=== PATIENT | male | born 1930 | race Caucasian/White ===

== ENCOUNTER 2018-05-02 13:13 | Inpatient (IN) | payer OTHER, MEDICARE ==
[~2018-05-02] VITALS: Ht 182.9 cm; Wt 114.8 kg
--- NOTE | ~2018-05-02 | HC ---
[facility] [address] CONSULTATION Name: DAVID RAMÍREZ Room #: 213-P [facility] IN ..#: [id number] Admission: 05/02/18 Attend Phys: Monico Montelongo MD Discharge: 05/09/18 Date of : 32 Report #: [id number] THIS REPORT FOR: //name// CC: Monico Montelongo Physician staff BOONE ROMO DATE OF SERVICE: 05/08/2018 HISTORY OF PRESENT ILLNESS: The patient is an 87-year-old white male with history of atrial fibrillation, hypertension, nonhealing right leg wound, who was admitted through the Emergency Department with a fall. A mechanical fall in the parking lot and hit his head. The patient denies specific loss of consciousness, but notes a decline in his mentation. He had a significant scalp laceration, which was glued. His daughter has noted some decline with his mental status, although he has had some problems with medications, muscle relaxers, and complicating things. He has had some confusion regarding times and days. His course has been complicated by acute renal insufficiency and he also had urinary retention with Barrett catheter placement greater than 1 liter residual. He was noted to have leukocytosis, possible fluid collection, abscess of the foot and underwent I and D by Podiatry. Wound care is involved. He has Infectious Disease involved as well and has noted MRSE of the right foot. He is on Zyvox. We are seeing him in rehabilitation medicine consultation. PAST MEDICAL HISTORY: Includes atrial fibrillation with rapid ventricular response, hypertension, previously nonhealing right foot wound, peripheral arterial disease, and bilateral lower extremity with ulceration. MEDICATIONS: Please see the full medication listing. This includes vitamins, herbals, and supplements. ALLERGIES: PENICILLIN. SOCIAL HISTORY: Lives in a senior apartment. Did not use any gait aids, premorbidly. There are no steps, involved daughter lives about 30 minutes away. The senior apartment is apparently starting some additional care services through a local home healthcare agency that are in the process of being set up. The patient premorbidly, he had been independent driving. REVIEW OF SYSTEMS: He did not offer any current complaints of chest pain, shortness of breath, and abdominal discomfort. He has some left leg discomfort and was noted to have a left hip contusion. CT of the left hip was negative during this hospitalization. PHYSICAL EXAMINATION: GENERAL: He is a pleasant 87-year-old white male, in no obvious distress. [facility] [address] [place] [address] CONSULTATION Name: MONICO,DAVID Room #: 213-P [facility] IN [facility].#: [id number] Admission: 05/02/18 Attend Phys: Monico Montelongo MD Discharge: 05/09/18 Date of : 32 Report #: [id number] NEUROLOGIC: He is alert, can follow basic 1 step commands. There is a latency to his responses. He was confused as to when he had surgery, thinking was last night when it actually in the afternoon. He has some prolonged cognitive processing. We will defer to his daughter. Facies appeared symmetric. We will follow basic 1 step commands. He has functional range of motion of both upper extremities with strength grade 4-/5. DTRs are trace to 1. He does have the scalp laceration, which was glued. His lower extremities, he has the right foot wound, which is dressed. There is no calf swelling. He can move the proximal lower extremity, probably a grade 4-/5, left lower extremity is probably a grade 3+4-/5. DTRs are 1. Functionally, he is max assist with basic bed to chair. He has fair minus sitting balance. He has started some work on some basic sliding board transfers. ASSESSMENT: An 87-year-old white male with the following problem list: 1. Rule out closed head injury. He did have the fall with the scalp laceration. 2. Likely superimposed metabolic encephalopathy. Some confusion, disorientation is noted. 3. Nonhealing right foot infection, now status post-surgical debridement 05/07/2018. 4. Methicillin-resistant Staphylococcus epidermidis, right foot infection. 5. Acute renal insufficiency. 6. Urinary retention with greater than 1 liter residual. Barrett catheter placement. 7. Atrial fibrillation. 8. Hypercoagulable. 9. Left lower extremity contusion. 10. Chronic systolic heart failure. 11. Cardiomyopathy. PLAN: The patient is nonweightbearing right lower extremity. Therapy evaluations are underway including occupational therapy. We are considering him for an acute in-hospital inpatient 5 North rehabilitation stay. Discussion with the daughter. We will have the certified rehabilitation counselor follow and we will follow along with you regarding his rehab therapy needs. <ELECTRONICALLY SIGNED> By: Darrin Schaffer MD 05/17/18 1220 1128 1337 Darrin Schaffer MD /BRENDA
--- NOTE | ~2018-05-02 | HC ---
[facility] [place] [address] CONSULTATION Name: DAVID RAMÍREZ Room #: 213-P [facility] IN ..#: [id number] Admission: 05/02/18 Attend Phys: Monico Montelongo MD Discharge: 05/09/18 Date of : 32 Report #: [id number] THIS REPORT FOR: //name// CC: Monico Montelongo Physician staff BOONE ROMO DATE OF SERVICE: 05/09/2018 HISTORY OF PRESENT ILLNESS: This heavy 87-year-old gentleman was injured about 1 week ago when he fell. 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 After the fall, he complained of rather generalized discomfort including the back, left hip, left knee, left leg and also the right lower leg and foot. He has been admitted to the hospital over the past week as he underwent foot surgery and also has multiple areas of discomfort, which have been unresponsive to conservative measures. He has had extensive radiographic imaging and no new fractures have been identified. At the time of my evaluation, he notes generalized discomfort, which seems to be most significant in the low back; however, he also has some pain at the left hip, thigh and knee with less discomfort in the left lower leg and moderate ongoing pain in the right lower leg and foot where he has had recent surgery. In discussing this with the patient and his family, he has difficulty determining where his primary complaint is at this point and what principally limits him from resuming ambulation. In general, his complaint is more severe in the low back and less severe at the left distal thigh. His previous history is notable for a previous left proximal femur fracture treated with a long TFN nail some years ago. He states he has been doing well after that procedure and has been ambulatory and functional on the left lower extremity without significant pain. He has had chronic low back discomfort, which has been manageable in a conservative fashion. OBJECTIVE: He is heavy and deconditioned and is poorly cooperative during my examination. The low back seems to have generalized discomfort, but without significant instability. He does self-limit in terms of range of motion noting some vague generalized low back pain, which seems most consistent with generalized degenerative osteoarthritis. The right lower extremity reveals satisfactory movement at the right hip and knee with only minor crepitus and minimal discomfort. The right foot is notable for a recent surgical wound with a dry and intact dressing on the foot consistent with a plantar ulcer and debridement. The left lower extremity is notable for some generalized discomfort about the left hip; however, the hip joint itself demonstrates good range of motion without crepitus nor any evidence of proximal femur fracture nor severe degenerative change. There is some generalized edema in both lower extremities, [address] [address] CONSULTATION Name: DAVID RAMÍREZ Room #: 213-P [facility] IN M.R.#: [id number] Admission: 05/02/18 Attend Phys: Monico Montelongo MD Discharge: 05/09/18 Date of : 32 Report #: [id number] but there is no localized swelling nor any bruising about the left hip or thigh. He does complain of some vague generalized mid and distal thigh discomfort both to palpation and movement. Findings seem consistent with soft tissue irritability and bruising or myositis. The femur seemed stable and in good position. The left knee demonstrates satisfactory alignment and range of motion with mild crepitus consistent with some degenerative change. The left lower leg, foot and ankle appear to be normal with the exception of some generalized edema. He does note some vague, radiating pain down the left leg, which is aggravated by movement and activity. This seems most consistent with some left-sided radiculopathy symptoms; however, I do not find clear neurologic deficit in the left lower extremity. He has had extensive imaging studies. Plain x-rays and CT scan of the left hip and femur reveal a well-healed old proximal femur fracture with a long TFN nail, which seems to be in good position. There is no evidence of new bony injury about the left hip, femur or knee. There is mild degenerative change of the left hip and the left knee, but this appears to be chronic. X-rays and MRI of the lumbar spine reveal moderate multilevel degenerative lumbar spondylosis with significant disk space narrowing at several levels. He has an old L4 compression fracture, which was treated with previous vertebroplasty and appears to be stable. There is no evidence of any new fractures in the low back. These degenerative changes do cause some level of canal narrowing and foraminal narrowing with mild stenosis, but there is no area of marked neurologic impingement. His MRI study of the right foot revealed evidence of a soft tissue ulcer at the mid foot, but without clear evidence of osteomyelitis. In summary, I see no evidence of any significant new structural injuries as a result of his recent fall. He does have significant preexisting problems, most notably the severe multilevel degenerative arthritis in the low back. I believe he probably sprained or strained the low back resulting in increased back pain as a result of the fall. In addition, I think he probably sprained or bruised the left thigh and has ongoing muscular irritability in that region. Fortunately, he has no evidence of a new fracture involving the left femur and no significant problems involving left hip nor the left knee. Consequently, I see nothing, which would require aggressive or surgical treatment. I understand he is uncomfortable and having difficulty participating with physical therapy. I think this is mostly due to his back pain and soft tissue discomfort in the left thigh. I see no reason we cannot advance his activities to whatever extent comfort and strength will allow and with physical therapy assistance. Certainly, he needs to use a walker for safety and balance and ambulation may be difficult as he is instructed to avoid any weightbearing on the right leg where he has had recent surgery. Given this limitation, he may not be able to ambulate at all as he feels too weak and uncomfortable to manage only on the left side. He may have to do transfers and be limited to wheelchair ambulation until the right foot heals sufficiently to allow weightbearing. I would not anticipate we will need to do anything else with regard to left lower extremity [address] [address] CONSULTATION Name: DAVID RAMÍREZ Room #: 213-P [facility] IN [facility].#: [id number] Admission: 05/02/18 Attend Phys: Monico Montelongo MD Discharge: 05/09/18 Date of : 32 Report #: [id number] based upon the current findings. We will follow along while he remains in the hospital and then, we are happy to see him back as an outpatient after discharge to follow up with regard to any other ongoing problems. <ELECTRONICALLY SIGNED> By: Darrin Guzman MD 05/10/18 0740 1043 0018 Darrin Guzman MD /nt
--- NOTE | ~2018-05-02 | EKG ---
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: CAMELIA : 1930 Requested By: Patel Wren Order Number: [id number] MD: Alexys Taylor Measurements Intervals [place]ax Rate: 153 P: GA: QRS: -1 QRSD: 86 T: 101 QT: 289 QTc: 462 Interpretive Statements Atrial fibrillation with rapid V-rate Low voltage, extremity leads Abnormal inferior Q waves Repolarization abnormality, prob rate related Baseline wander in lead(s) III No previous ECG available for comparison Electronically Signed On 05-02-2018 17:03:26 CDT by Alexys Taylor [email or web address] <ELECTRONICALLY SIGNED> By: Alexys Taylor MD 05/02/18 1703 1314 1314 Alexys Taylor MD /EPI
--- NOTE | ~2018-05-02 | HC ---
[facility] [place] [address] CONSULTATION Name: DAVID RAMÍREZ Room #: 213-P [facility] IN M.R.#: [id number] Admission: 05/02/18 Attend Phys: Monico Montelongo MD Discharge: Date of : 32 Report #: [id number] THIS REPORT FOR: //name// CC: Monico Montelongo Physician staff BOONE ROMO DATE OF SERVICE: 05/03/2018 CHIEF COMPLAINT: Ulceration on the plantar aspect of the right foot. HISTORY OF PRESENT ILLNESS: This is an 87-year-old white male patient who presented to the Emergency Department with a nonsyncopal event. He apparently fell and struck his head after falling in a parking lot. He did sustain a laceration to the scalp. He underwent primary repair in the Emergency Department. Additionally, he is noted to have a chronic ulceration on the plantar aspect of his right foot that has been present for 3 months. It has not been much painful. He has been seen by podiatry for this. There was noted to be possibly foreign body on x-ray per the Emergency Department report. I have been asked to see him with regard to wound care. He generally feels well at this point in time. Additionally, he has been noted to be in atrial fibrillation with rapid ventricular response and is being now seen by cardiology. The patient had a CT scan of the head, which was normal. PAST MEDICAL HISTORY: Positive history of atrial fibrillation, history of laceration to his head, ulcer of the right foot, left hip fracture, previous radical prostatectomy. SOCIAL HISTORY: The patient admits to occasional alcohol use. He is a previous smoker having quit after smoking for 20 years, 1 pack per day. No history of drug use. FAMILY HISTORY: Noncontributory. ALLERGIES: PENICILLINS. MEDICATIONS: Include metoprolol, Xarelto, Toprol, Synthroid, acetaminophen, Colace. REVIEW OF SYSTEMS: CONSTITUTIONAL: The patient denies fever, chills or weight loss. NEUROLOGICAL: The patient denies focal weakness, numbness or tingling. EYES: The patient denies visual changes, redness or drainage. ENT: The patient denies earache, nasal drainage or sore throat. CARDIOVASCULAR: The patient denies chest pain, palpitation or diaphoresis. PULMONARY: The patient denies cough or shortness of breath. [address] [address] CONSULTATION Name: MONICODAVID Room #: [address] [place] [address] IN [facility].#: [id number] Admission: 05/02/18 Attend Phys: Monico Montelongo MD Discharge: Date of : 32 Report #: [id number] GASTROINTESTINAL: The patient denies nausea, vomiting or abdominal pain. ORTHOPEDIC: The patient does note the ulceration on the plantar aspect of his right foot. It is slightly painful when weightbearing, but not painful when touched. Other systems in a 14-point review of systems are negative. PHYSICAL EXAMINATION: VITAL SIGNS: At this time include pulse rate 113, respiratory rate 18, blood pressure 122/65, temperature 97.7. GENERAL: This is a chronically ill-appearing male patient who appears to be in minimal distress. HEENT: Head demonstrates a laceration that is status post repair. The remainder of the head is atraumatic. Extraocular movements are intact. Nose and throat are clear. NECK: Supple. LUNGS: Clear. HEART: Irregular. ABDOMEN: Soft. Bowel sounds are present. EXTREMITIES: Demonstrate diminished yet palpable distal pulses. He has an ulceration on the plantar aspect of the right foot underlying the third MTP joint. He has a bit of a prominence of the plantar portions of the MTP joints. There is some tunneling and undermining of this ulceration, but does not appear to be infected and bone is not directly palpable. NEUROLOGIC: The patient is alert, oriented and appropriate. Moving all 4 extremities spontaneously. LABORATORY DATA: Include sodium 135, potassium 4.2, chloride 105, CO2 of 26, BUN 20, creatinine 1.2. Lactic acid is 1.3. CRP is elevated at 81. White blood cell count is 14.5, hemoglobin 10.8, platelet count 204,000. Sed rate is mildly elevated at 33. Hemoglobin A1c is 5.7. Wound cultures obtained, results pending. X-ray of the right foot demonstrates possible small foreign body, small ulcer on the ball of the foot with no definite bone destruction. CT of the head demonstrates atrophic changes, extracranial hematoma, no acute intracranial process. CLINICAL IMPRESSION: 1. Closed head injury with scalp laceration, status post primary repair by the Emergency Department. 2. Atrial fibrillation with rapid ventricular response. 3. Mild hyperglycemia, does not appear to be clinical criteria for diabetes mellitus. 4. Chronic ulceration, plantar aspect of the right foot. RECOMMENDATIONS: At this point in time, we will recommend MRI to evaluate for underlying osteomyelitis. If present, he may require an aggressive debridement including bony debridement of that area. We will recommend packing with silver [facility] [address] [place] [address] CONSULTATION Name: DAVID RAMÍREZ Room #: 819-P ADM IN [place]#: [id number] Admission: 05/02/18 Attend Phys: Monico Montelongo MD Discharge: Date of : 32 Report #: [id number] alginate rope for the present time. Empiric antibiotic therapy would be reasonable pending the cultures, although the wound itself does not appear to be overtly infected. All questions have been answered and the patient's daughter is at the bedside as well. I do appreciate being asked to see him in consultation. <ELECTRONICALLY SIGNED> By: Faraz Long MD 05/07/18 1401 1706 0303 Faraz Long MD /nt
--- NOTE | ~2018-05-02 | HC ---
[facility] [place] [address] CONSULTATION Name: DAVID RAMÍREZ Room #: 213-P [facility] IN M.R.#: [id number] Admission: 05/02/18 Attend Phys: Monico Montelongo MD Discharge: Date of : 32 Report #: [id number] THIS REPORT FOR: //name// CC: Monico Montelongo Physician staff BOONE ROMO REASON FOR CONSULTATION: Atrial fibrillation. HISTORY OF PRESENT ILLNESS: The patient is an 87-year-old gentleman who is a patient of Dr. Velasco. He has been followed for long-term atrial fibrillation, which has been treated with rate-controlling agents, as well as rivaroxaban. He has had a right foot sore for the past several weeks. 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 He was wearing a stiff boot and lost his balance and had a non-syncopal fall with associated scalp laceration. He has generalized aches and pains from the fall. No loss of consciousness. He was seen in the emergency department where his atrial fibrillation rates were fast. I have been asked to see him in this regard. He is largely asymptomatic from the standpoint of his atrial fibrillation. Namely, he denies chest pain or pressure. He is bothered by mild shortness of breath without orthopnea or paroxysmal nocturnal dyspnea. No history of near syncope or syncope. He denies fevers, chills or night sweats. ALLERGIES: He is allergic to PENICILLIN. MEDICATIONS: Include rivaroxaban 10 mg daily, metoprolol 25 mg daily, levothyroxine 100 mcg daily, and Colace. PAST MEDICAL HISTORY: His past history of medical records have been reviewed and includes history of radical prostatectomy, left hip fracture with surgery, and compression fracture of the spine. 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 . FAMILY HISTORY: No history of premature coronary disease. Both parents lived to their late 80s. REVIEW OF SYSTEMS: All systems negative except as that noted above. PHYSICAL EXAMINATION: GENERAL: A pleasant gentleman in no distress. VITAL SIGNS: Blood pressure is 152/79, heart rate of 119 and irregular, respirations unlabored at 18, he is afebrile, 6 feet tall, 252 pounds. HEENT: There are neither xanthelasma, subcutaneous xanthomata, oral mucosal or digital cyanosis or kyphoscoliosis present. [facility] [address] [place] [address] CONSULTATION Name: NGOC RAMÍREZYD Room #: 213-P [facility] IN [facility].#: [id number] Admission: 05/02/18 Attend Phys: Monico Montelongo MD Discharge: Date of : 32 Report #: [id number] CHEST: Clear to auscultation and percussion. CARDIAC: Irregularly irregular rhythm with normal S1, S2. No murmurs or rubs. ABDOMEN: Soft and nontender. EXTREMITIES: Without cyanosis, clubbing or edema. Radial pulses are 2+. NEUROLOGIC: He is alert with a nonfocal exam. LABORATORY DATA: Troponin 0, sodium 135, potassium 4.2, creatinine 1.2, glucose 123. White count 14.5, hemoglobin 10, hematocrit 32, platelet count 204. EKG: Atrial fibrillation with a rapid ventricular response. IMAGING DATA: Foot films demonstrated possible small foreign body and a small ulcer at the ball of the right foot. No bone destruction. Chest x-ray demonstrates normal heart size and vascularity at the upper limits of normal. IMPRESSION: 1. Permanent atrial fibrillation. 2. Right foot wound, possible foreign body. 3. Glucose intolerance. 4. Hypercoagulable. 5. Non-syncopal fall with injury. RECOMMENDATIONS: 1. Advance metoprolol dosing. 2. Obtain records from Dr. Mcnally's office; [facility]' Cardiology. 3. I agree with long-term anticoagulation. This has been held briefly due to scalp bleeding from his scalp laceration and possible need for foot debridement. These issues were discussed with the patient in detail. Thank you for asking me to participate in his care. <ELECTRONICALLY SIGNED> By: Raul Mccloud MD, FACC 05/07/18 1259 0731 0804 Raul Mccloud MD, FACC /nt
--- NOTE | ~2018-05-02 | HC ---
[facility] [place] [address] CONSULTATION Name: DAVID RAMÍREZ Room #: 213-P [facility] IN M.R.#: [id number] Admission: 05/02/18 Attend Phys: Monico Montelongo MD Discharge: Date of : 32 Report #: [id number] THIS REPORT FOR: //name// CC: Monico Montelongo Physician staff BOONE ROMO DATE OF SERVICE: 05/06/2018 REASON FOR CONSULTATION: Right foot infection. HISTORY OF PRESENT ILLNESS: An 87-year-old white man has developed a right foot infection, evaluated by the board certified music therapist and the foot infection became worse, coagulase negative isolated, he is started on vancomycin, renal function worsens, ID opinion is requested. PAST MEDICAL HISTORY: Atrial fibrillation, hypertension. Hypothyroidism. Chronic back pain. Recent trauma, left hip. Nonhealing right foot infection. SOCIAL HISTORY: See H and P. FAMILY HISTORY: See H and P. REVIEW OF SYSTEMS: Left hip pain. DRUG ALLERGIES: PENICILLIN. MEDICATIONS: The patient is on treatment with vancomycin 750 mg IV daily, diltiazem drip, levothyroxine, metoprolol, p.r.n. oxycodone, polyethylene glycol daily, docusate daily, metoprolol daily, pantoprazole daily, insulin release per sliding scale, p.r.n. glucose, glucagon. PHYSICAL EXAMINATION: GENERAL: Well-developed, not toxic looking man. VITAL SIGNS: Temperature 97.9, pulse 87, respirations 18, BP 158/68. Weight 263.3 pounds, height is 6 feet. HEENMT: Within range. NECK: Supple. LUNGS: Few basilar crackles. HEART: S1, S2. No gallop. Irregularly irregular rhythm. ABDOMEN: Soft, no masses or megaly. GENITALIA AND RECTAL: Deferred. EXTREMITIES: Under the head of the right third and fourth metacarpals, there are sinus tracts and point tenderness draining purulent material. NEUROLOGIC: Grossly within normal limits. [address] [address] CONSULTATION Name: MONICO,DAVID Room #: 213-[facility] IN [facility]#: [id number] Admission: 05/02/18 Attend Phys: Monico Montelongo MD Discharge: Date of : 32 Report #: [id number] LABORATORY DATA: On admission, renal function is normal. Renal function revealed a BUN of 23 and creatinine 1.5. This improves over the days, but today, the BUN jumps up to 42 and creatinine 2.4. Vancomycin trough elevated and dose decreased. C-reactive protein was 81. On 05/03/2018, WBC 11,400, hemoglobin 8.4 g/dL, platelets 219,000. ESR 33. On 05/03/2018, hemoglobin A1c 5.7%. Urinalysis revealed some bacteriuria. MICROBIOLOGY DATA: Blood cultures obtained remained negative so far. Foot wound culture revealed many coagulase negative Staphylococcus aureus sensitive to vancomycin, WINSTON of 2. RADIOLOGY EVALUATION: Chest x-ray, no significant abnormalities. X-ray of the foot revealed possible small foreign body, small ulcer around the metatarsal areas on the right foot. MRI of the foot revealed subcutaneous edema, cellulitis of the foot, the fluid collection, possible abscess around the third and fourth metatarsal heads. Deep ulcer and granulation tissue or inflammatory changes in the ball of the foot anterior to the second through fourth metatarsophalangeal joints, no osteomyelitis. X-ray of the femur revealed no significant abnormalities. CAT scan of the left lower extremities, no acute fracture or dislocation, post-surgical changes of intramedullary ykler fixation of left femur fracture. ASSESSMENT: 1. A right foot infection with coagulase-negative Staphylococcus with sensitive vancomycin WINSTON 2. 2. Worsening renal function, 3. Atrial fibrillation. 4. Trauma, left hip recent fall. 5. Anemia. SUGGESTIONS: Recommend discontinue vancomycin. Zyvox 600 mg IV every 12 hours. Repeat ESR, CRP. Proceed with incision and drainage. Dr. Collier, thank you for requesting my suggestions. <ELECTRONICALLY SIGNED> By: Adonay Taylor MD 05/07/18 1005 1055 1858 Adonay Taylor MD /nt
--- NOTE | ~2018-05-02 | EKG ---
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
[2018-05-02 13:14] VITALS: BP 132/80
[2018-05-02 13:42] LABS: ANION GAP 11 mmol/L (7-16); BUN 23 mg/dL (7-18); CALCIUM 9.9 mg/dL (8.5-10.1); CHLORIDE 102 mmol/L (98-107); CO2 24 mmol/L (21-32); CREATININE 1.5 mg/dL (0.7-1.3); GLUCOSE 161 mg/dL (74-106); POTASSIUM 4.7 mmol/L (3.5-5.1); SODIUM 137 mmol/L (136-145)
[2018-05-02 13:46] LABS: ABSOLUTE NEUTROPHILS 13.9 thou/uL (1.4-8.2); BASOPHILS 0.6 % (0.0-2.0); EOSINOPHILS 0.1 % (0.0-3.0); HEMATOCRIT 43.4 % (42.0-52.0); HEMOGLOBIN 14.5 gm/dL (14.0-18.0); MCHC 33.5 g/dL (28.0-37.0); MCV 92.3 fL (80.0-100.0); MONOCYTES 10.6 % (1.0-8.0); PLATELET COUNT 238 thou/uL (150-400); POLYS 80.7 % (36.0-66.0); RDW 13.9 % (10.5-14.5); WBC 17.2 thou/uL (4.0-11.0)
[2018-05-02 13:51] LABS: TROPONIN-I <0.06 ng/mL (<0.06)
[2018-05-02 13:52] LABS: APTT 36.3 Seconds (24.5-32.8); INR 1.5; PROTIME 15.3 Seconds (9.3-11.4)
[2018-05-02 15:36] LABS: URINE BILIRUBIN NEGATIVE (Negative); URINE BLOOD TRACE (Negative); URINE CLARITY CLEAR; URINE COLOR YELLOW; URINE GLUCOSE-RANDOM* NEGATIVE (Negative); URINE KETONES NEGATIVE (Negative); URINE LEUKOCYTES-REFLEX NEGATIVE (Negative); URINE NITRITE-REFLEX NEGATIVE (Negative); URINE PROTEIN (DIPSTICK) 1+ (Negative); URINE SPECIFIC GRAVITY 1.025 (1.005-1.035); URINE UROBILINOGEN 0.2 E.U./dl (0.2-1.0)
[2018-05-02] MEDS ORDERED: XARELTO10 MG PO (15:37)
[2018-05-02] MEDS ORDERED: TOPROL XL25 MG PO (15:38)
[2018-05-02] MEDS ORDERED: SYNTHROID100 MC1 PO (15:39)
[2018-05-02] MEDS ORDERED: ONE DAILY FOR1 EAC2 PO (15:40)
[2018-05-02] MEDS ORDERED: TYLENOL EXTRA500 MG PO (15:40)
[2018-05-02] MEDS ORDERED: COLACE100 MG PO (15:40)
[2018-05-02 15:44] LABS: SQUAMOUS 0-3 Few /LPF (0-3)
[2018-05-02 15:45] LABS: BACTERIA-REFLEX 1-9 Few /HPF (None Seen); CASTS None Seen /LPF (None Seen); CRYSTALS None Seen /LPF (None Seen); URINE RBC 0-2 Rare /HPF (0-2); URINE WBC-REFLEX None Seen /HPF (0-5)
[2018-05-02 17:52] VITALS: BP 126/64
[2018-05-02 18:25] VITALS: BP 142/71
[2018-05-02 19:12] VITALS: BP 148/63
[2018-05-03 00:10] VITALS: BP 143/72
[2018-05-03 04:09] LABS: GLYCOHEMOGLOBIN (HGB A1C) 5.7 % (4.8-5.6)
[2018-05-03 05:00] LABS: CALCIUM 8.8 mg/dL (8.5-10.1); CREATININE 1.2 mg/dL (0.7-1.3); MAGNESIUM 2.1 mg/dL (1.8-2.4); POTASSIUM 4.2 mmol/L (3.5-5.1)
[2018-05-03 05:09] VITALS: BP 152/79
[2018-05-03 05:34] LABS: HEMATOCRIT 32.1 % (42.0-52.0); MCHC 33.6 g/dL (28.0-37.0); MCV 92.2 fL (80.0-100.0); PLATELET COUNT 204 thou/uL (150-400); RBC 3.48 mil/uL (4.50-6.00); RDW 14.1 % (10.5-14.5); WBC 14.5 thou/uL (4.0-11.0)
[2018-05-03 05:35] LABS: HEMOGLOBIN 10.8 gm/dL (14.0-18.0)
[2018-05-03 07:42] LABS: ABSOLUTE NEUTROPHILS 10.7 thou/uL (1.4-8.2)
[2018-05-03 08:22] VITALS: BP 140/73
[2018-05-03 11:22] VITALS: BP 131/61
[2018-05-03 15:04] VITALS: BP 122/65
[2018-05-03 19:07] VITALS: BP 113/69
[2018-05-04] VITALS (7 sets, daily range): BP systolic 110–128; BP diastolic 60–71
[2018-05-04 07:58] LABS: HEMATOCRIT 29.9 % (42.0-52.0); HEMOGLOBIN 9.9 gm/dL (14.0-18.0); MCH 30.4 pg (26.0-34.0); PLATELET COUNT 193 thou/uL (150-400); RBC 3.25 mil/uL (4.50-6.00); RDW 14.5 % (10.5-14.5)
[2018-05-04 08:06] LABS: CALCIUM 8.1 mg/dL (8.5-10.1); CREATININE 1.2 mg/dL (0.7-1.3); POTASSIUM 4.4 mmol/L (3.5-5.1)
[2018-05-04 08:51] LABS: ABSOLUTE NEUTROPHILS 11.1 thou/uL (1.4-8.2); ATYPICAL LYMPHS 1 %
[2018-05-04 08:52] LABS: ANISOCYTOSIS SLIGHT
[2018-05-05 04:14] VITALS: BP 138/58
[2018-05-05 05:49] LABS: HEMATOCRIT 26.3 % (42.0-52.0); HEMOGLOBIN 8.7 gm/dL (14.0-18.0); MCH 30.5 pg (26.0-34.0); MCHC 33.1 g/dL (28.0-37.0); MCV 92.1 fL (80.0-100.0); RBC 2.85 mil/uL (4.50-6.00); RDW 14.1 % (10.5-14.5); WBC 12.3 thou/uL (4.0-11.0)
[2018-05-05 05:58] LABS: CALCIUM 8.4 mg/dL (8.5-10.1); CREATININE 1.3 mg/dL (0.7-1.3); POTASSIUM 4.7 mmol/L (3.5-5.1)
[2018-05-05 08:06] VITALS: BP 126/66
[2018-05-05 11:22] VITALS: BP 112/62
[2018-05-05 16:20] VITALS: BP 151/72
[2018-05-05 19:52] VITALS: BP 142/63
[2018-05-06 03:24] LABS: HEMATOCRIT 25.6 % (42.0-52.0); HEMOGLOBIN 8.4 gm/dL (14.0-18.0); MCH 30.3 pg (26.0-34.0); MCHC 32.8 g/dL (28.0-37.0); MCV 92.6 fL (80.0-100.0); RBC 2.77 mil/uL (4.50-6.00); RDW 14.2 % (10.5-14.5); WBC 11.4 thou/uL (4.0-11.0)
[2018-05-06 03:33] LABS: CALCIUM 8.4 mg/dL (8.5-10.1)
[2018-05-06 03:42] LABS: CREATININE 2.4 mg/dL (0.7-1.3)
[2018-05-06 04:11] VITALS: BP 134/59
[2018-05-06 07:42] VITALS: BP 158/68
[2018-05-06 11:30] VITALS: BP 135/70
[2018-05-06 16:00] VITALS: BP 130/62
[2018-05-06 20:05] VITALS: BP 135/54
[2018-05-07 04:03] LABS: CALCIUM 8.8 mg/dL (8.5-10.1); CREATININE 2.1 mg/dL (0.7-1.3); POTASSIUM 4.6 mmol/L (3.5-5.1)
[2018-05-07 04:43] VITALS: BP 144/52
[2018-05-07 04:44] LABS: HEMATOCRIT 26.8 % (42.0-52.0); MCH 31.3 pg (26.0-34.0); MCHC 33.7 g/dL (28.0-37.0); MCV 92.9 fL (80.0-100.0); RBC 2.89 mil/uL (4.50-6.00); RDW 14.3 % (10.5-14.5); WBC 12.9 thou/uL (4.0-11.0)
[2018-05-07 13:07] VITALS: BP 127/65
[2018-05-07 19:39] VITALS: BP 112/57
[2018-05-08 00:18] VITALS: BP 137/58
[2018-05-08 03:51] LABS: CALCIUM 8.1 mg/dL (8.5-10.1); CREATININE 1.6 mg/dL (0.7-1.3); POTASSIUM 4.4 mmol/L (3.5-5.1)
[2018-05-08 04:30] VITALS: BP 129/60
[2018-05-08 07:35] VITALS: BP 141/63
[2018-05-08 11:58] VITALS: BP 116/36
[2018-05-08 16:14] VITALS: BP 139/51
[2018-05-08 19:52] VITALS: BP 114/42
[2018-05-09 00:09] VITALS: BP 112/67
[2018-05-09 03:45] VITALS: BP 109/47
[2018-05-09 03:47] LABS: HEMATOCRIT 26.7 % (42.0-52.0); HEMOGLOBIN 8.9 gm/dL (14.0-18.0); MCH 30.9 pg (26.0-34.0); MCHC 33.4 g/dL (28.0-37.0); MCV 92.6 fL (80.0-100.0); RBC 2.88 mil/uL (4.50-6.00); RDW 14.3 % (10.5-14.5); WBC 12.4 thou/uL (4.0-11.0)
[2018-05-09 03:50] LABS: CALCIUM 8.7 mg/dL (8.5-10.1); CREATININE 1.6 mg/dL (0.7-1.3); MAGNESIUM 1.8 mg/dL (1.8-2.4); POTASSIUM 4.3 mmol/L (3.5-5.1)
[2018-05-09 07:41] VITALS: BP 123/68
[2018-05-09 12:10] VITALS: BP 102/52
[2018-05-09] MEDS ORDERED: LIDOPATCH1 EACH TRANSDERM (12:55)
[2018-05-09] MEDS ORDERED: CARDIZEM CD240 MG PO (12:55)
[2018-05-09] MEDS ORDERED: PROTONIX40 M1 PO (12:55)
[2018-05-09] MEDS ORDERED: MIRALAX17 GM PO (12:55)
[2018-05-09] MEDS ORDERED: LOPRESSOR50 PO (12:55)
[2018-05-09] MEDS ORDERED: PERCOCET 5-3251 EACH PO (12:55)
[2018-05-09] MEDS ORDERED: NOVOLOG100 UNIT/1 SUBQ (12:55)
[2018-05-09] MEDS ORDERED: FLOMAX0.4 MG PO (12:55)
[2018-05-09] MEDS ORDERED: LINEZOLID600 MG PO (12:55)
[2018-05-09] MEDS ORDERED: CYCLOBENZAPRINE5 MG PO (12:55)
== END 2018-05-09 15:55 | DRG 853 ==
LOC: ER 13:13 → 2N 15:37 → EROBS 15:37 → 2N 17:53
PROVIDERS: Hospitalist; Internal Medicine; Nurse Practitioner; Physician Assistant
PROC: 0HQ0XZZ Repair Scalp Skin, External Approach (ICD-10-PCS; 2018-05-02)
PROC: 0JBQ0ZZ Excision of Right Foot Subcutaneous Tissue and Fascia, Open Approach (ICD-10-PCS; principal; 2018-05-07)
DX: A41.9 Sepsis, unspecified organism (principal); N17.0 Acute kidney failure with tubular necrosis; D68.59 Other primary thrombophilia; I42.9 Cardiomyopathy, unspecified; I50.22 Chronic systolic (congestive) heart failure; L03.115 Cellulitis of right lower limb; L02.611 Cutaneous abscess of right foot; S90.851A Superficial foreign body, right foot, initial encounter; S01.01XA Laceration without foreign body of scalp, initial encounter; I48.2 Chronic atrial fibrillation; R65.20 Severe sepsis without septic shock; E74.39 Other disorders of intestinal carbohydrate absorption; S09.90XA Unspecified injury of head, initial encounter; L97.519 Non-pressure chronic ulcer of other part of right foot with unspecified severity; R73.9 Hyperglycemia, unspecified; E03.9 Hypothyroidism, unspecified; G89.29 Other chronic pain; M54.9 Dorsalgia, unspecified; D64.9 Anemia, unspecified; L08.9 Local infection of the skin and subcutaneous tissue, unspecified; B95.62 Methicillin resistant Staphylococcus aureus infection as the cause of diseases classified elsewhere; I73.9 Peripheral vascular disease, unspecified; I11.0 Hypertensive heart disease with heart failure; R33.9 Retention of urine, unspecified; S70.02XA Contusion of left hip, initial encounter; S89.91XA Unspecified injury of right lower leg, initial encounter; K59.00 Constipation, unspecified; S79.912A Unspecified injury of left hip, initial encounter; Z23 Encounter for immunization; Z62.813 Personal history of forced labor or sexual exploitation in childhood; Z88.0 Allergy status to penicillin; Z87.891 Personal history of nicotine dependence; Z85.46 Personal history of malignant neoplasm of prostate; W18.39XA Other fall on same level, initial encounter; Y93.89 Activity, other specified; Y92.89 Other specified places as the place of occurrence of the external cause; Y99.8 Other external cause status
CPT/HCPCS: 10081; 50010; 50101; 50386; 53078; 57091; 62110; 62850; 70005

== ENCOUNTER 2018-05-09 13:04 | Inpatient (IN) | payer OTHER, MEDICARE ==
[~2018-05-09] VITALS: Ht 182.9 cm; Wt 128.4 kg
--- NOTE | ~2018-05-09 | PATH ---
[facility] [address] [address] PATHOLOGY RPT PROCEDURE Name: ALEX MARC Room #: 515-P ADM IN M.R.#: [id number] Admission: 05/09/18 Date of : 32 Discharge: Report #: [id number] Path Case #: [id number] [facility] Accession Number: [id number] . 01 Material submitted: . BX OF GASTRIC R/O H PYLORI . 01 Clinician provided ICD-10: . 01 Clinical history: . Dysphagia, rule out H. pylori . 02 Diagnosis: Gastric mucosa, gastritis, endoscopic biopsy: - Mild chronic active gastritis. - Negative for intestinal metaplasia or atrophy. - Negative for Helicobacter pylori (properly controlled immunohistochemical stain performed). (IUV/db; 05/17/18) LBQ/05/17/2018 . 02 Electronically signed: . Martha Maloney MD, Pathologist NPI- [id number] . 01 Gross description: . The specimen is received in formalin, labeled "Alex Marc, BX of gastric", are two anne soft tissue 0.2 cm and 0.7 cm in greatest dimension, entirely submitted in A1. (SWS; 05/16/2018) SHS/SHS . 02 Pathologist provided ICD-10: K29.50 . 02 CPT . 143381, N68260 Specimen Comment: A courtesy copy of this report has been sent to Specimen Comment: [phone], . Specimen Comment: Report sent to / DR SCHWAB Specimen Comment: A duplicate report has been generated due to demographic updates. Performed at: [address], [place] [id number] MD Caden Barrientos MD Phone: [phone] [address] [address] PATHOLOGY RPT PROCEDURE Name: ALEX MARC Room #: 515-P [facility] IN M.R.#: [id number] Admission: 05/09/18 Date of : 32 Discharge: Report #: [id number] Path Case #: [id number] Performed at: [address] [id number] MD Martha Maloney MD Phone: [phone]
--- NOTE | ~2018-05-09 | H ---
[facility] [place] [address] HISTORY AND PHYSICAL Name: DAVID RAMÍREZ Room #: 515-P ADM IN M.R.#: [id number] Admission: 05/09/18 Attend Phys: Darrin Schaffer MD Discharge: Date of : 32 Report #: [id number] THIS REPORT FOR: //name// CC: Darrin Schaffer FAM unknown BOONE ROMO DATE OF SERVICE: 05/09/2018 HISTORY OF PRESENT ILLNESS: This is an 87-year-old gentleman who presented to the Emergency Department after a fall in the parking lot. He was diagnosed with a closed head injury. They used surgery glue in the Emergency Department on his occipital scalp area. Also, diagnosed with metabolic encephalopathy and a nonhealing right foot wound. He underwent I and D on 05/07/2018. Also noted to have some acute renal insufficiency along with urinary retention, which required a Barrett catheter placement. Due to the patient's decline in his functional mobility, he is now being admitted to acute inpatient rehabilitation for physical, occupational and speech therapies. Today, the patient reports generalized weakness and fatigue. He denies headache or dizziness. He denies numbness or tingling. He denies cough, shortness of air, chest pain, nausea or constipation. He reports a good appetite. He has pain in his foot. The catheter is being removed at present. PAST MEDICAL HISTORY: Left hip fracture, prostatectomy radical, atrial fibrillation, hypothyroidism, hypertension, constipation. HABITS: The patient is a former cigarette smoker. He smoked 1 pack per day for 20 years. He quit over 1 year ago. He uses alcohol on special occasions. Denies any illicit drug use. CODE STATUS: Full code. SOCIAL HISTORY: The patient lives in a long-term apartment. There are no steps to enter the building, all needs are on one level. He utilized no assistive device premorbidly. He does have a very involved daughter. ALLERGIES: PENICILLIN. CURRENT MEDICATIONS: Xarelto 15 mg daily, lidocaine patch daily, Zyvox 600 mg twice a day, Cardizem 240 mg daily, Flomax 0.4 mg daily, IV piggyback Cardizem, levothyroxine 100 mcg daily, Percocet one to two tablets q.4 hours p.r.n., MiraLax 17 grams daily, Colace 100 mg twice a day, metoprolol tartrate 50 mg twice a day, Protonix 40 mg daily, sliding scale insulin a.c. and at bedtime. REVIEW OF SYSTEMS: Remainder of his 12-point review of systems is negative except as listed in HPI. [address] [address] HISTORY AND PHYSICAL Name: DAVID RAMÍREZ Room #: 515-P [facility] IN M.R.#: [id number] Admission: 05/09/18 Attend Phys: Darrin Schaffer MD Discharge: Date of : 32 Report #: [id number] PHYSICAL EXAMINATION: VITAL SIGNS: 102/52, respirations 14, pulse of 82, temperature 97.6. He is 100% oxygen sat on room air. GENERAL: He is awake, alert, oriented to person, place and situation. He is a poor historian and requires redirection with the topic. HEAD: Normocephalic. He has a contusion and open area on the occipital region. There was some surgery glue over it and dry drainage. There was some fresh blood noted on his pillow case. EYES: EOMs are intact. No nystagmus. ENT: No sinus tenderness. CARDIAC: Irregular rate and rhythm. CHEST: Lungs are diminished and clear throughout. ABDOMEN: Bowel sounds are positive, soft, nontender. GENITOURINARY: He has a Barrett catheter with dark yellow urine output noted in the bag. SKIN: He has a right foot wound with dressing clean, dry and intact. EXTREMITIES: Functional range of motion upper and lower extremities. No noted tremors. He is max assist from bed to chair with slide board transfer. He has some trouble maintaining the no weightbearing on the right lower extremity. NEUROLOGIC: Facies appeared symmetrical. He can follow basic 1-step commands. No noted slurred speech. He has some latency in his verbal responses. ASSESSMENT: 1. Metabolic encephalopathy. 2. Rule out closed head injury. 3. Fall with scalp laceration, status post glue. 4. Right foot wound, status post surgical debridement on 05/07/2018. 5. Acute renal insufficiency. 6. Urinary retention. 7. Atrial fibrillation. 8. Cardiomyopathy with ejection fraction of 40%. 9. Chronic systolic heart failure. 10. Left hip pain, status post fall. 11. Cough. PLAN: The patient has been admitted to acute inpatient rehabilitation unit for physical, occupational, and speech therapies with his goal to return back to his home living situation. He will have hospital consultants continue to follow. The nurses reached out to Podiatry for possible heel weightbearing. If that does happen, we could get him evaluated for a right heel bearing only shoe. He [facility] [address] [place] [address] HISTORY AND PHYSICAL Name: DAVID RAMÍREZ Room #: 515-P ADM IN M.R.#: [id number] Admission: 05/09/18 Attend Phys: Darrin Schaffer MD Discharge: Date of : 32 Report #: [id number] will have lab work checked the next 3 days, close monitoring. Please see extensive orders. <ELECTRONICALLY SIGNED> By: DEVORAH Reza 05/21/18 1240 1441 1529 DEVORAH Reza /nt
--- NOTE | ~2018-05-09 | PLAN ---
[facility] [place] [address] REHAB UNIT PLAN OF CARE Name: DAVID RAMÍREZ Room #: 515-P ADM IN M.R.#: [id number] Admission: 05/09/18 Attend Phys: Darrin Schaffer MD Discharge: Date of : 32 Report #: [id number] THIS REPORT FOR: //name// CC: Darrin Schaffer FAM unknown BOONE ROMO DATE OF SERVICE: 05/10/2018 POST ADMISSION PHYSICIAN EVALUATION HISTORY: The patient was originally admitted to [facility] after a fall through the Emergency Department and was admitted on 05/02/2018. He had a significant scalp laceration. Did not have a specific loss of consciousness, but noted a decline in his mentation and family has noted this as well. His course was complicated by acute renal insufficiency. He also had urinary retention with Barrtet catheter placement for greater than 1 liter residual. He had leukocytosis, possible fluid collection, abscess of the foot and underwent I and D by Podiatry. He is noted to have methicillin-resistant staphylococcus aureus of the right foot. He is admitted now for acute in-hospital inpatient rehabilitation with the following problem list: 1. Metabolic encephalopathy. 2. Rule out closed head injury. 3. Fall with scalp laceration. 4. Right foot wound, status post surgical debridement 05/07/2018. 5. Acute renal insufficiency. 6. Urinary retention. 7. Atrial fibrillation. 8. Cardiomyopathy with ejection fraction of 40%. 9. Chronic systolic heart failure. PHYSICAL EXAMINATION: GENERAL: On examination, he is pleasant. HEENT: Appeared to be benign. VITAL SIGNS: Last recorded temperature is 97.5, pulse 91, respirations 15, and blood pressure 127/58. His right foot is dressed. CHEST: Sounded clear to auscultation. HEART: Regular rate and rhythm. ABDOMEN: Bowel sounds positive and nontender with functional range of motion of both upper extremities with strength grade 4- to 3+/5. DTRs are trace to 1. Lower extremities functional range of motion strength is grade 3+ to 4-/5. Transfers are sliding board, max assist for scooting, supine to sit, mod assist. He is limited to nonweightbearing right lower extremity. He does have rwxy-[id number]-[id number] cognitive deficits. ASSESSMENT: As noted above. PLAN: From a postadmission physician evaluation perspective, there are no relevant changes since the preadmission screening. Please see the above review [address] [address] REHAB UNIT PLAN OF CARE Name: ADVID RAMÍREZ Room #: 515-P [facility] IN [facility].#: [id number] Admission: 05/09/18 Attend Phys: Darrin Schaffer MD Discharge: Date of : 32 Report #: [id number] of prior and current medical and functional conditions and comorbidities. Please see the full history and physical dictation as per the nurse practitioner. As far as risk of complications, see the above noted medical comorbidities. We will be monitoring him regarding safety issues. The plan of care involves the interdisciplinary acute inpatient rehabilitation program with the goal of maximizing his functional independence, so he can hopefully return back to his prior living situation. Measurable functional goals would be for him to become modified independent at least at the wheelchair level initially. Prognosis is reasonably good with estimated length of stay probably at least 2 weeks and likely longer. Potential barriers would include the patient's multiple medical comorbidities and decreased functional status. The patient meets diagnostic criteria for an acute in-hospital inpatient rehabilitation stay. He meets the medical necessity criteria and he has multiple small business consultant physicians that are involved with Infectious Disease, Cardiology, Wound care, Podiatry, all involved and we will have neuropsychology assist with the cognitive issues. He does have the tolerance for therapies and has appropriate discharge goals back to the home setting. <ELECTRONICALLY SIGNED> By: Darrin Schaffer MD 05/23/18 1213 0849 10 Darrin Schaffer MD /nt
--- NOTE | ~2018-05-09 | HC ---
[facility] [place] [address] CONSULTATION Name: DAVID RAMÍREZ Room #: 515-P [facility] IN M.R.#: [id number] Admission: 05/09/18 Attend Phys: Darrin Schaffer MD Discharge: Date of : 32 Report #: [id number] THIS REPORT FOR: //name// CC: Darrin Schaffer FAM mariah ROMO DATE OF SERVICE: 05/12/2018 Neurobehavioral Status Examination Report ATTENDING PHYSICIAN: Darrin Schaffer MD JUNIOR WEB DESIGNER: Ronni Miles, PhD CLINICAL PRESENTATION: The patient is an 87-year-old male, admitted to the rehabilitation unit at [facility] for a comprehensive inpatient rehabilitation program to improve functional mobility, activities of daily living and self-care and mental status secondary to encephalopathy. The patient was initially brought into the emergency room after a fall in the parking lot, in which he struck the back of his head. At that time, he was identified as having a nonhealing right foot wound, metabolic encephalopathy, acute renal insufficiency, and urinary retention. His diagnostic impressions on admission to rehab were metabolic encephalopathy, rule out closed head injury, fall with scalp laceration, right foot wound, status post surgical debridement, acute renal insufficiency, urinary retention, atrial fibrillation, cardiomyopathy with ejection fraction of 40%, chronic left systolic heart failure, left hip pain, status post fall on the calf. A complete description of his medical condition and history and medications can be found in his medical record. Neuropsychological consultation was requested to provide assistance in the assessment of cognitive and emotional status in order to provide recommendations and services. Prior to this most recent medical event, he is reported to have been living independently in a chcf community. He has 2 children. The patient states that he was independent with all instrumental activities of daily living including driving. 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 He denies a prior history of treatment for alcohol/drug abuse or mood disorder. TECHNIQUES UTILIZED: Clinical interview, review of medical records, staff consultation and behavioral observation, Mini-Mental Status Exam 2 standard version, clock drawing, and verbal fluency assessment sections and brief abstract reasoning test. [facility] [address] [place] [address] CONSULTATION Name: DAVID RAMÍREZ Room #: 515-P [facility] IN .R.#: [id number] Admission: 05/09/18 Attend Phys: Darrin Schaffer MD Discharge: Date of : 32 Report #: [id number] EXAMINATION FINDINGS: The patient was alert and cooperative with the assessment. He accurately described events surrounding his admission. There is no evidence of aphasia. His thoughts are logical and goal oriented. There is no evidence of thought disorder. He does not report auditory or visual hallucinations or suicidal ideation. His mood appears mildly irritable. He indicates feeling frustrated with his need for continued hospitalization and treatment. Symptoms include difficulty with sleep, pain, anxiety, depression and variability in word finding. He is worried about his return to prior lifestyle. Performance on the MMSE 2 brief version is in the mild range of impairment with a raw score of 13 and T score of 36. He was 3/3 for initial registration, 4/5 for orientation to time, 5/[address] and 1/3 for immediate recall of 3 items after brief time delay and distraction. Performance on the MMSE 2 standard version is a raw score of 24/30, which is a T score of 36 and in the mild range of impairment. He was 2/5 for serial 7s, 2/2 for naming, 1/1 for repetition, 3/3 for auditory comprehension. He could read and follow a single command, write a sentence, and copy a simple geometric design. However, the patient was unable to set the hands of a clock at a designated time. Letter fluency was within normal limits with a raw score 26 and T score of 48. Category fluency assessment was within normal limits with a T score of 57. Brief abstract reasoning test was 8/8, which is within normal limits. The patient does show evidence of cognitive deficits. Difficulty with immediate recall, sustained concentration and variability and with word substitution. Deficits in executive functioning are suggested. They are also suggested by an impairment in clock drawing. DIAGNOSTIC IMPRESSION: 1. 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 2. Unspecified anxiety disorder. RECOMMENDATIONS: Further neuropsychological assessment may be of benefit to clarify the severity of cognitive functioning. The use of medications that are sedating may be contributing variability in cognitive function. Reducing as medically appropriate medication with sedating features, for example, oxycodone may be of benefit in improving overall cognition. The patient will likely need assistance with the management of his medication and nutrition upon his return home. A structured and consistent schedule will assist his overall adjustment. Followup neuropsych assessment in approximately 6-8 weeks will also be of benefit to clarify the severity of cognitive deficits. [address] [address] CONSULTATION Name: DAVID RAMÍREZ Room #: 515-P [facility] IN M.R.#: [id number] Admission: 05/09/18 Attend Phys: Darrin Schaffer MD Discharge: Date of : 32 Report #: [id number] Thank you very much for allowing me to provide the consultation on this patient. By: 1727 0628 Ronni Miles, PhD /nt
--- NOTE | ~2018-05-09 | PLAN ---
[facility] [place] [address] REHAB UNIT PLAN OF CARE Name: DAVID RAMÍREZ Room #: 515-P ADM IN M.R.#: [id number] Admission: 05/09/18 Attend Phys: Darrin Schaffer MD Discharge: Date of : 32 Report #: [id number] THIS REPORT FOR: //name// CC: Darrin Schaffer FAM unknown BOONE ROMO DATE OF SERVICE: 05/11/2018 PROGRESS NOTE AND OVERALL PLAN OF CARE SUBJECTIVE: The patient was seen back earlier. Last recorded temperature is 36.8, respirations 18, blood pressure 151/68. The patient was unable to void in the middle of the night and had a catheter placed with 700 mL. No focal calf swelling. Sleepy, but arousable. Transfers have been max assist of 2, using a sliding board. Bed mobility, max assist. In occupational therapy, lower body dressing has been dependent. He has functional comprehension. He is on a regular nectar thickened liquid diet. ASSESSMENT: 1. Metabolic encephalopathy. 2. Rule out closed head injury. 3. Fall with scalp laceration. 4. Right foot wound, status post surgical debridement 05/07/2018, is nonweightbearing. 5. Acute renal insufficiency. 6. Urinary retention. 7. Atrial fibrillation. 8. Cardiomyopathy with an ejection fraction of 40%. 9. Chronic systolic heart failure. PLAN: The overall plan of care is based on the preadmission screen, post-admission physician evaluation and information garnered from therapy assessments. 1. Estimated length of stay is probably at 3 weeks as he is at a lower level. 2. Medical prognosis is reasonably good. 3. Anticipated interventions includes the interdisciplinary acute inpatient rehabilitation program with PT, OT and speech, rehabilitation nursing assisting regarding medication management, skin care prophylaxis, bowel and bladder issues, nursing education. The database consultant physicians assisting along with the multidisciplinary acute inpatient rehabilitation program. 4. Anticipated functional outcomes would be for the patient to become modified independent with transfers, mobility and ADLs to hopefully return back to the home setting. At this point, the goal would be independent at a wheelchair level and hopefully further improve from there. 5. Discharge destination would be back to the home setting [place] [address] REHAB UNIT PLAN OF CARE Name: DAVID RAMÍREZ Room #: 515-P [facility] IN [facility]#: [id number] Admission: 05/09/18 Attend Phys: Darrin Schaffer MD Discharge: Date of : 32 Report #: [id number] [facility] apartment. He is going to need increased assistance. 6. Expected therapy by discipline includes PT, OT and speech 1 hour per day each five days a week throughout the duration of the acute inpatient rehabilitation stay. <ELECTRONICALLY SIGNED> By: Darrin Schaffer MD 05/23/18 1213 0904 1116 Darrin Schaffer MD /nt
[~2018-05-09 13:04] MED LIST: CARDIZEM CD240 MG PO; COLACE100 MG PO; CYCLOBENZAPRINE5 MG PO; FLOMAX0.4 MG PO; LIDOPATCH1 EACH TRANSDERM; LINEZOLID600 MG PO; LOPRESSOR50 PO; MIRALAX17 GM PO; NOVOLOG100 UNIT/1 SUBQ; ONE DAILY FOR1 EAC2 PO; PERCOCET 5-3251 EACH PO; PROTONIX40 M1 PO; SYNTHROID100 MC1 PO; TOPROL XL25 MG PO; TYLENOL EXTRA500 MG PO; XARELTO10 MG PO
[2018-05-09 20:30] VITALS: BP 128/62
[2018-05-10 06:31] LABS: HEMATOCRIT 27.6 % (42.0-52.0); HEMOGLOBIN 9.2 gm/dL (14.0-18.0); MCH 30.6 pg (26.0-34.0); MCHC 33.3 g/dL (28.0-37.0); MCV 91.8 fL (80.0-100.0); RBC 3.01 mil/uL (4.50-6.00); RDW 14.5 % (10.5-14.5); WBC 11.6 thou/uL (4.0-11.0)
[2018-05-10 06:46] LABS: CREATININE 1.4 mg/dL (0.7-1.3); POTASSIUM 4.1 mmol/L (3.5-5.1)
[2018-05-10 07:56] VITALS: BP 127/58
[2018-05-10 20:30] VITALS: BP 151/68
[2018-05-11 07:43] LABS: HEMOGLOBIN 9.5 gm/dL (14.0-18.0); MCH 30.7 pg (26.0-34.0); MCHC 33.9 g/dL (28.0-37.0); MCV 90.4 fL (80.0-100.0); RBC 3.1 mil/uL (4.50-6.00); RDW 14.4 % (10.5-14.5); WBC 13.3 thou/uL (4.0-11.0)
[2018-05-11 07:55] LABS: CREATININE 1.2 mg/dL (0.7-1.3); MAGNESIUM 1.9 mg/dL (1.8-2.4); POTASSIUM 4.1 mmol/L (3.5-5.1)
[2018-05-11 19:50] VITALS: BP 121/51
[2018-05-12 07:47] LABS: HEMOGLOBIN 9.5 gm/dL (14.0-18.0); MCH 30.7 pg (26.0-34.0); MCHC 33.8 g/dL (28.0-37.0); MCV 90.8 fL (80.0-100.0); RBC 3.09 mil/uL (4.50-6.00); RDW 14.4 % (10.5-14.5); WBC 12.1 thou/uL (4.0-11.0)
[2018-05-12 07:56] LABS: CREATININE 1.2 mg/dL (0.7-1.3); MAGNESIUM 1.9 mg/dL (1.8-2.4); POTASSIUM 4.1 mmol/L (3.5-5.1)
[2018-05-12 10:28] VITALS: BP 148/60
[2018-05-12 19:40] VITALS: BP 130/44
[2018-05-13 08:00] VITALS: BP 143/54
[2018-05-13 20:35] VITALS: BP 144/56
[2018-05-14 03:42] LABS: ABSOLUTE NEUTROPHILS 9.2 thou/uL (1.4-8.2); BASOPHILS 0.3 % (0.0-2.0); EOSINOPHILS 1.4 % (0.0-3.0); HEMATOCRIT 26.2 % (42.0-52.0); HEMOGLOBIN 8.7 gm/dL (14.0-18.0); LYMPHOCYTES 10.1 % (24.0-44.0); MCH 30.5 pg (26.0-34.0); MCHC 33.2 g/dL (28.0-37.0); MONOCYTES 7.7 % (1.0-8.0); PLATELET COUNT 359 thou/uL (150-400); POLYS 80.5 % (36.0-66.0); RBC 2.85 mil/uL (4.50-6.00); RDW 14.5 % (10.5-14.5); WBC 11.5 thou/uL (4.0-11.0)
[2018-05-14 04:04] LABS: CALCIUM 8.5 mg/dL (8.5-10.1); CREATININE 1.3 mg/dL (0.7-1.3); MAGNESIUM 1.8 mg/dL (1.8-2.4); POTASSIUM 4.2 mmol/L (3.5-5.1)
[2018-05-14 19:45] VITALS: BP 128/52
[2018-05-15 08:00] VITALS: BP 130/66
[2018-05-15 09:54] LABS: ABSOLUTE NEUTROPHILS 8.2 thou/uL (1.4-8.2); BASOPHILS 0.4 % (0.0-2.0); EOSINOPHILS 1.7 % (0.0-3.0); HEMATOCRIT 29.8 % (42.0-52.0); HEMOGLOBIN 9.9 gm/dL (14.0-18.0); LYMPHOCYTES 9.5 % (24.0-44.0); MCH 31.1 pg (26.0-34.0); MCHC 33.4 g/dL (28.0-37.0); MCV 93.2 fL (80.0-100.0); PLATELET COUNT 430 thou/uL (150-400); POLYS 81.4 % (36.0-66.0); RDW 14.6 % (10.5-14.5)
[2018-05-15 20:00] VITALS: BP 148/55
[2018-05-16 20:59] VITALS: BP 133/56
[2018-05-17 06:06] LABS: ABSOLUTE NEUTROPHILS 5.3 thou/uL (1.4-8.2); BASOPHILS 0.5 % (0.0-2.0); EOSINOPHILS 1.7 % (0.0-3.0); HEMATOCRIT 28.5 % (42.0-52.0); HEMOGLOBIN 9.3 gm/dL (14.0-18.0); LYMPHOCYTES 18.1 % (24.0-44.0); MCH 30.5 pg (26.0-34.0); MCHC 32.5 g/dL (28.0-37.0); MCV 93.9 fL (80.0-100.0); MONOCYTES 9.6 % (1.0-8.0); POLYS 70.1 % (36.0-66.0); RBC 3.03 mil/uL (4.50-6.00); RDW 14.8 % (10.5-14.5); WBC 7.6 thou/uL (4.0-11.0)
[2018-05-17 06:09] LABS: PLATELET COUNT 348 thou/uL (150-400)
[2018-05-17 06:16] LABS: CALCIUM 8.5 mg/dL (8.5-10.1); CREATININE 1.3 mg/dL (0.7-1.3); MAGNESIUM 1.9 mg/dL (1.8-2.4); POTASSIUM 4.2 mmol/L (3.5-5.1)
[2018-05-17 08:53] VITALS: BP 147/71
[2018-05-17 19:15] VITALS: BP 131/59
[2018-05-18 08:15] VITALS: BP 127/65
[2018-05-18 17:12] LABS: ABSOLUTE NEUTROPHILS 7.8 thou/uL (1.4-8.2); BASOPHILS 0.3 % (0.0-2.0); EOSINOPHILS 1.2 % (0.0-3.0); HEMATOCRIT 27.4 % (42.0-52.0); HEMOGLOBIN 9.4 gm/dL (14.0-18.0); LYMPHOCYTES 13.4 % (24.0-44.0); MCHC 34.3 g/dL (28.0-37.0); MCV 93.4 fL (80.0-100.0); MONOCYTES 9.5 % (1.0-8.0); PLATELET COUNT 328 thou/uL (150-400); POLYS 75.6 % (36.0-66.0); RBC 2.93 mil/uL (4.50-6.00); RDW 14.6 % (10.5-14.5); WBC 10.3 thou/uL (4.0-11.0)
[2018-05-18 17:33] LABS: CALCIUM 8.7 mg/dL (8.5-10.1); CREATININE 1.5 mg/dL (0.7-1.3); POTASSIUM 4.2 mmol/L (3.5-5.1)
[2018-05-18 20:15] VITALS: BP 126/50
[2018-05-19 20:46] VITALS: BP 149/66
[2018-05-20 06:24] LABS: HEMOGLOBIN 8.8 gm/dL (14.0-18.0); MCH 31.2 pg (26.0-34.0); MCHC 33.7 g/dL (28.0-37.0); MCV 92.5 fL (80.0-100.0); PLATELET COUNT 285 thou/uL (150-400); RBC 2.81 mil/uL (4.50-6.00); RDW 14.4 % (10.5-14.5); WBC 9.8 thou/uL (4.0-11.0)
[2018-05-20 06:32] LABS: CALCIUM 8.4 mg/dL (8.5-10.1); CREATININE 1.1 mg/dL (0.7-1.3); MAGNESIUM 1.8 mg/dL (1.8-2.4); POTASSIUM 4.1 mmol/L (3.5-5.1)
[2018-05-20 07:50] VITALS: BP 150/74
[2018-05-20 07:58] LABS: ABSOLUTE NEUTROPHILS 7.4 thou/uL (1.4-8.2); METAMYELOCYTES 1 %
[2018-05-20 07:59] LABS: ANISOCYTOSIS SLIGHT; POLYCHROMASIA OCCASIONAL
[2018-05-20 19:40] VITALS: BP 119/58
[2018-05-21 05:41] LABS: HEMATOCRIT 26.3 % (42.0-52.0); HEMOGLOBIN 8.8 gm/dL (14.0-18.0); MCH 30.9 pg (26.0-34.0); MCHC 33.5 g/dL (28.0-37.0); MCV 92.5 fL (80.0-100.0); PLATELET COUNT 303 thou/uL (150-400); RBC 2.84 mil/uL (4.50-6.00); RDW 14.8 % (10.5-14.5); WBC 10.4 thou/uL (4.0-11.0)
[2018-05-21 05:53] LABS: CALCIUM 8.5 mg/dL (8.5-10.1); CREATININE 1.2 mg/dL (0.7-1.3); MAGNESIUM 1.8 mg/dL (1.8-2.4); POTASSIUM 4.1 mmol/L (3.5-5.1)
[2018-05-21 07:26] LABS: ABSOLUTE NEUTROPHILS 7.2 thou/uL (1.4-8.2); METAMYELOCYTES 1 %; NUCLEATED RBCS 1 /100WBC
[2018-05-21 07:27] LABS: ANISOCYTOSIS 1+
[2018-05-21 07:30] VITALS: BP 143/76
[2018-05-21 19:34] VITALS: BP 127/59
[2018-05-22 08:30] VITALS: BP 133/70
[2018-05-22 19:15] VITALS: BP 126/68
[2018-05-23 08:20] VITALS: BP 137/73
[2018-05-23 19:35] VITALS: BP 119/45
[2018-05-24 07:58] VITALS: BP 129/75
[2018-05-24] MEDS ORDERED: VOLTAREN GEL 1100 G2 TOP (08:16)
[2018-05-24] MEDS ORDERED: MELATONIN5 M1 PO (08:16)
[2018-05-24] MEDS ORDERED: LOPRESSOR50 PO (08:16)
== END 2018-05-24 11:34 | DRG 70 ==
LOC: ENTRNSPT 05-24 11:25 → EDTRNSPTSTS 05-24 11:29
PROVIDERS: Family Medicine; Nurse Practitioner; Nurse Practitioner Family
PROC: 0D758ZZ Dilation of Esophagus, Via Natural or Artificial Opening Endoscopic (ICD-10-PCS; principal; 2018-05-16)
PROC: 0DB78ZX Excision of Stomach, Pylorus, Via Natural or Artificial Opening Endoscopic, Diagnostic (ICD-10-PCS; principal; 2018-05-16)
DX: G93.41 Metabolic encephalopathy (principal); A41.9 Sepsis, unspecified organism; R65.20 Severe sepsis without septic shock; I42.9 Cardiomyopathy, unspecified; L02.611 Cutaneous abscess of right foot; I50.22 Chronic systolic (congestive) heart failure; N17.9 Acute kidney failure, unspecified; E87.0 Hyperosmolality and hypernatremia; W18.39XA Other fall on same level, initial encounter; S01.01XA Laceration without foreign body of scalp, initial encounter; R53.81 Other malaise; R33.9 Retention of urine, unspecified; I48.91 Unspecified atrial fibrillation; E03.9 Hypothyroidism, unspecified; I11.0 Hypertensive heart disease with heart failure; I48.2 Chronic atrial fibrillation; K59.00 Constipation, unspecified; G89.29 Other chronic pain; M54.9 Dorsalgia, unspecified; Y93.89 Activity, other specified; Y99.8 Other external cause status; Z90.79 Acquired absence of other genital organ(s); Z87.891 Personal history of nicotine dependence; Z88.0 Allergy status to penicillin; Z79.899 Other long term (current) drug therapy; Z79.01 Long term (current) use of anticoagulants; Y92.481 Parking lot as the place of occurrence of the external cause; Z22.322 Carrier or suspected carrier of Methicillin resistant Staphylococcus aureus; M25.552 Pain in left hip; F41.9 Anxiety disorder, unspecified; R41.9 Unspecified symptoms and signs involving cognitive functions and awareness; L97.519 Non-pressure chronic ulcer of other part of right foot with unspecified severity; K21.9 Gastro-esophageal reflux disease without esophagitis; K29.50 Unspecified chronic gastritis without bleeding; Z53.29 Procedure and treatment not carried out because of patient's decision for other reasons; R13.19 Other dysphagia
CPT/HCPCS: 10112; 70005

== ENCOUNTER → 2018-07-08 | Outpatient (CLI) | payer OTHER, MEDICARE ==
[~2018-07-08] MED LIST changes: +MELATONIN5 M1 PO; +VOLTAREN GEL 1100 G2 TOP
== END ==
LOC: HYPER 06-13 09:33
DX: L97.512 Non-pressure chronic ulcer of other part of right foot with fat layer exposed (principal); L84 Corns and callosities; E03.9 Hypothyroidism, unspecified; G93.41 Metabolic encephalopathy; I11.0 Hypertensive heart disease with heart failure; I50.20 Unspecified systolic (congestive) heart failure; I42.9 Cardiomyopathy, unspecified; I48.91 Unspecified atrial fibrillation; K21.9 Gastro-esophageal reflux disease without esophagitis; M25.552 Pain in left hip; Z79.01 Long term (current) use of anticoagulants; Z85.46 Personal history of malignant neoplasm of prostate; Z96.649 Presence of unspecified artificial hip joint; Z87.891 Personal history of nicotine dependence

== ENCOUNTER → 2018-07-22 | Outpatient (CLI) | payer OTHER, MEDICARE | LOC: HYPER 06:54 | DX: L97.512 Non-pressure chronic ulcer of other part of right foot with fat layer exposed (principal); I11.0 Hypertensive heart disease with heart failure; I50.20 Unspecified systolic (congestive) heart failure; I42.9 Cardiomyopathy, unspecified; I48.91 Unspecified atrial fibrillation; L84 Corns and callosities; E03.9 Hypothyroidism, unspecified; G93.41 Metabolic encephalopathy; M25.552 Pain in left hip; Z85.46 Personal history of malignant neoplasm of prostate; Z79.01 Long term (current) use of anticoagulants; Z87.891 Personal history of nicotine dependence ==

== ENCOUNTER → 2018-08-14 | Outpatient (CLI) | payer OTHER, MEDICARE | LOC: HYPER 06:34 | DX: L97.512 Non-pressure chronic ulcer of other part of right foot with fat layer exposed (principal); I50.20 Unspecified systolic (congestive) heart failure; I42.9 Cardiomyopathy, unspecified; I48.91 Unspecified atrial fibrillation; R13.19 Other dysphagia; L84 Corns and callosities; E03.9 Hypothyroidism, unspecified; G93.41 Metabolic encephalopathy; M25.552 Pain in left hip; Z85.46 Personal history of malignant neoplasm of prostate; Z87.891 Personal history of nicotine dependence; Z79.01 Long term (current) use of anticoagulants ==

== ENCOUNTER → 2018-09-11 | Outpatient (CLI) | payer OTHER, MEDICARE | LOC: HYPER 07:37 | DX: L97.512 Non-pressure chronic ulcer of other part of right foot with fat layer exposed (principal); L84 Corns and callosities; E03.9 Hypothyroidism, unspecified; G93.41 Metabolic encephalopathy; I11.0 Hypertensive heart disease with heart failure; I50.20 Unspecified systolic (congestive) heart failure; I42.9 Cardiomyopathy, unspecified; I48.91 Unspecified atrial fibrillation; K21.9 Gastro-esophageal reflux disease without esophagitis; Z79.01 Long term (current) use of anticoagulants; Z85.46 Personal history of malignant neoplasm of prostate; Z87.891 Personal history of nicotine dependence ==

== ENCOUNTER → 2018-10-09 | Outpatient (CLI) | payer OTHER, MEDICARE | LOC: HYPER 10-02 07:18 | DX: T81.89XD Other complications of procedures, not elsewhere classified, subsequent encounter (principal); L97.512 Non-pressure chronic ulcer of other part of right foot with fat layer exposed; I50.20 Unspecified systolic (congestive) heart failure; I42.9 Cardiomyopathy, unspecified; I48.91 Unspecified atrial fibrillation; L84 Corns and callosities; E03.9 Hypothyroidism, unspecified; M25.552 Pain in left hip; G93.41 Metabolic encephalopathy; Z85.46 Personal history of malignant neoplasm of prostate; Z79.01 Long term (current) use of anticoagulants; Z87.891 Personal history of nicotine dependence; Y83.8 Other surgical procedures as the cause of abnormal reaction of the patient, or of later complication, without mention of misadventure at the time of the procedure ==

== ENCOUNTER → 2018-10-30 | Outpatient (CLI) | payer OTHER, MEDICARE | LOC: HYPER 06:54 | DX: T81.89XD Other complications of procedures, not elsewhere classified, subsequent encounter (principal); L97.512 Non-pressure chronic ulcer of other part of right foot with fat layer exposed; L84 Corns and callosities; E03.9 Hypothyroidism, unspecified; I11.0 Hypertensive heart disease with heart failure; I50.20 Unspecified systolic (congestive) heart failure; I42.9 Cardiomyopathy, unspecified; I48.91 Unspecified atrial fibrillation; G93.41 Metabolic encephalopathy; K21.9 Gastro-esophageal reflux disease without esophagitis; Z87.891 Personal history of nicotine dependence; Z85.46 Personal history of malignant neoplasm of prostate; Z79.01 Long term (current) use of anticoagulants; Y83.8 Other surgical procedures as the cause of abnormal reaction of the patient, or of later complication, without mention of misadventure at the time of the procedure ==

== ENCOUNTER 2018-11-20 06:58 | Inpatient (IN) | payer OTHER, MEDICARE ==
[~2018-11-20] VITALS: Ht 182.9 cm; Wt 107.5 kg
[2018-11-20 12:05] LABS: ABSOLUTE NEUTROPHILS 8.9 thou/uL (1.4-8.2); BASOPHILS 0.6 % (0.0-2.0); EOSINOPHILS 1.4 % (0.0-3.0); HEMATOCRIT 38.8 % (42.0-52.0); HEMOGLOBIN 12.8 gm/dL (14.0-18.0); LYMPHOCYTES 12.5 % (24.0-44.0); MCH 30.2 pg (26.0-34.0); MCHC 32.9 g/dL (28.0-37.0); MCV 91.7 fL (80.0-100.0); MONOCYTES 11.5 % (1.0-8.0); PLATELET COUNT 316 thou/uL (150-400); RBC 4.23 mil/uL (4.50-6.00); RDW 15.1 % (10.5-14.5)
[2018-11-20 12:18] LABS: ALBUMIN 3.1 g/dL (3.4-5.0); CALCIUM 9.2 mg/dL (8.5-10.1); CREATININE 1.4 mg/dL (0.7-1.3); POTASSIUM 4.6 mmol/L (3.5-5.1); TOTAL BILIRUBIN 0.8 mg/dL (<0.1-1.0); TOTAL PROTEIN 7.9 g/dL (6.4-8.2)
--- NOTE | 2018-11-20 12:47 | NUR ---
PT ARRIVED TO FLOOR PER DIRECT ADMIT FROM DR ALLEN'S OFFICE AT 1110 IN STABLE CONDITION.ADMISSION HX,CAREPLAN AND ASSESSMENT COMPLETED.DR ROONEY NOTIFIED ABOUT PT ARRIVAL TO THE UNIT AND HE ROUNDED ON PT.ORDER NOTED.WOUND PICTURE TAKEN AND NEW DRESSING APPLIED.LUNCH GIVEN.ATTEMPT MADE TO START IV BUT FAILED.IV TEAM PAGE.WILL CONTINUE TO MONITOR.
[2018-11-20] MEDS ORDERED: BIOFREEZE118 ML TOP (13:13)
[2018-11-20] MEDS ORDERED: PHARMACY (13:14)
[2018-11-20 15:53] VITALS: BP 122/67
--- NOTE | 2018-11-20 15:56 | NUR ---
PT ADMITTED RELATED TO RIGHT FOOT INFECTION. CM REVIEWED CHART AND SPOKE WITH CARE TEAM. CM MET WITH PT AT BEDSIDE THIS DAY. PT IS A&O X4. CM ROLE INTRODUCED. PT INDICATED HE LIVES ALONE IN AN INDEPENDENT SENIOR APARTMENT WITH NO STEPS TO ENTER AND NO STEPS INSIDE. 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 PT INDICATED NO DME HX. 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 CM TO FOLLOW INDICATED WITH DC PLANNING.
[2018-11-20 21:50] VITALS: BP 122/53
[2018-11-21 02:59] LABS: URINE BILIRUBIN NEGATIVE (Negative); URINE BLOOD NEGATIVE (Negative); URINE CLARITY CLEAR; URINE COLOR YELLOW; URINE GLUCOSE-RANDOM* NEGATIVE (Negative); URINE KETONES NEGATIVE (Negative); URINE LEUKOCYTES-REFLEX NEGATIVE (Negative); URINE NITRITE-REFLEX NEGATIVE (Negative); URINE PROTEIN (DIPSTICK) NEGATIVE (Negative); URINE UROBILINOGEN 0.2 E.U./dl (0.2-1.0)
--- NOTE | 2018-11-21 07:05 | NUR ---
R FOOT WOUND WITH DRSG C/D/I. PT WALKS WITH SBA TO THE BATHROOM. DENIES PAIN. VSS.WILL CONTINUE WITH POC TILL EOS.
[2018-11-21 07:46] VITALS: BP 150/88
[2018-11-21 08:18] LABS: HEMATOCRIT 36.6 % (42.0-52.0); HEMOGLOBIN 12.2 gm/dL (14.0-18.0); MCH 30.2 pg (26.0-34.0); MCHC 33.3 g/dL (28.0-37.0); MCV 90.8 fL (80.0-100.0); RBC 4.02 mil/uL (4.50-6.00); RDW 14.8 % (10.5-14.5); WBC 8.1 thou/uL (4.0-11.0)
[2018-11-21 08:27] LABS: CALCIUM 9.2 mg/dL (8.5-10.1); CREATININE 1.2 mg/dL (0.7-1.3); MAGNESIUM 1.8 mg/dL (1.8-2.4); POTASSIUM 4.4 mmol/L (3.5-5.1)
[2018-11-21 09:12] LABS: CHOLESTEROL 116 mg/dL (<200); HDL CHOLESTEROL 31 mg/dL (>40); LDL CHOLESTEROL 69 mg/dL (<100); TC:HDL 3.7 Ratio (Not establshd); TRIGLYCERIDE 84 mg/dL (<150); VLDL 17 mg/dL (<40)
--- NOTE | 2018-11-21 10:20 | NUR ---
Nutrition: Pt admitted for right foot wound/infection. Seen for wound. Wound present x7 months. Has been going to wound clinic. Appetite is good, eating most of each meal. Has been drinking Ensure at home for added protein, will order. Wt in May 2018 253 lbs, pt says this is high for him. UBW 240-245 lbs. Current wt 237 lbs. Aware of increased need for protein. Low nutrition risk.
--- NOTE | 2018-11-21 14:37 | NUR ---
WOUND CONSULT: PT. WAS SEEN TODAY BY DR. ALLEN AND MYSELF. PT. IS WELL KNOWN TO THE WOUND CARE TEAM. PT. HAS A NON-HEALING ULCER TO HIS PLANTER SURFACE OF HIS RIGHT FOOT. PT. HAS WAS ADMITTED FROM THE WOUND CLINIC YESTERDAY FOR EVALUATION OF THIS WOUND. RECOMMENDATIONS: PACK WITH AQUECEL AG, COVER WITH DRY GAUZE, SECURE WITH KERLIX AND TAPE, COMPLETE CARES DAILY AND PRN. PT. AND STAFF NURSE WERE INSTRUCTED ON PLAN OF CARE.
[2018-11-21 16:20] VITALS: BP 134/58
--- NOTE | 2018-11-21 18:33 | NUR ---
ASSUMED PT CARE APPROX. 1045. AMBULATES WITH ASSIST X1 AND WALKER. IV INTACT IN L HAND INFUSED IV ANTIBIOTIC W/O COMPS. ID/ WOUND CARE CONSULTED, CX OBTAINED. PT WILL HAVE ARTERIOGRAM 11/22/18. DAUGHTER VISITED MOST OF THE DAY. PT [facility]ED TO [facility].
[2018-11-21 20:02] VITALS: BP 144/85
[2018-11-22] VITALS (15 sets, daily range): BP systolic 130–156; BP diastolic 59–117
--- NOTE | 2018-11-22 04:04 | NUR ---
PATIENT ALERT AND ORIENTED X4. DENIES PAIN. UP TO BATHROOM WITH ASSIST. DRESSING ON R FT D/I. SLEPT MOST OF THE NIGHT.
--- NOTE | 2018-11-22 09:08 | HC ---
[facility] [place] [address] CONSULTATION Name: DAVID RAMÍREZ Room #: 221-P [facility] IN M.R.#: [id number] Admission: 11/20/18 ������������������ Attend Phys: Deidre Collier Discharge: ������������������ Date of : 32 Report #: [id number] THIS REPORT FOR: //name// CC: Deidre Berman Sirisha SHOOK CLARISSA DATE OF SERVICE: 11/21/2018 HISTORY OF PRESENT ILLNESS: An 88-year-old white man admitted from Dr. Long's office with a new right foot ulceration, possible abscess. Culture taken in the office, no results available as of yet. The patient is known to have mild peripheral vascular disease. Repeat studies have revealed progression of disease in the infrapopliteal artery. I read the report to him and he ends up visit by telling me and I have not told him anything about the vascular studies. Obviously either unable to hear me well or mild cognitive impairment, discussed with Dr. Long about findings. The patient tells me what I am telling him, is possibly not in the same line as to what Dr. Galaviz told him. Actually, I have no idea what Dr. Galaviz may have said. PAST MEDICAL HISTORY: History of atrial fibrillation with rapid ventricular response. Head concussion. Previous laceration. Right foot chronic ulcer. DRUG ALLERGIES: PENICILLIN AND CYCLOBENZAPRINE. MEDICATIONS: The patient is currently on treatment with vancomycin 1 g IV 1 dose, diltiazem, levothyroxine, rivaroxaban, metoprolol, melatonin, docusate, acetaminophen, polyethylene glycol, p.r.n. nitroglycerin, p.r.n. ondansetron. SOCIAL HISTORY: See H and P, old records. FAMILY HISTORY: See H and P, old records. REVIEW OF SYSTEMS: See H and P and as above. PHYSICAL EXAMINATION: GENERAL: Elderly man that appears to be quite okay, but I have my doubts about his cognition. VITAL SIGNS: Temperature 97.9, pulse 95, respirations 18, BP 150/88. Height is 6 feet, weight 237 pounds. HEENMT: Within range. NECK: Supple. LUNGS: Clear. HEART: S1, S2. ABDOMEN: Soft. GENITALIA AND RECTAL: Deferred. [facility] [address] [place] [address] CONSULTATION Name: DAVID RAMÍREZ Room #: 221-P ADM IN M.R.#: [id number] Admission: 11/20/18 ������������������ Attend Phys: Deidre Collier Discharge: ������������������ Date of : 32 Report #: [id number] EXTREMITIES: No palpable dorsalis or posterior tibialis pulses. Right foot: There is an ulceration around the right third metatarsal area. This is with granulation tissue. No sign of infection. The newest ulceration around the head of the right fourth metatarsal. Looks like there may some odor coming from that or it is just odor from poor hygiene of feet. LABORATORY DATA: Sodium 138, potassium 4.6, BUN 31, creatinine 1.4, glucose 121, albumin 3.1, CRP 31.4, WBC 12,000, hemoglobin 12.8, platelets 316,000. ESR 50. RADIOLOGY EVALUATION: MRI right foot: No evidence of osteomyelitis. X-ray right foot: No evidence of osteomyelitis. Noninvasive study, vascular circulation reveals slight progression of the right infrapopliteal disease. ASSESSMENT: 1. Possible abscess right foot, status post incision and drainage. 2. Chronic ulceration, right foot with no infection. 3. Peripheral vascular disease. 4. Question cognitive impairment. 5. PENICILLIN ALLERGY. RECOMMENDATIONS: Continue vancomycin to be dosed by pharmacy and anaerobic coverage with meropenem 500 mg IV every 8 hours. Vascular consultation in order. Discussed situation with Dr. Long. Dr. Long, thank you for requesting my suggestions. ��������������������������������������������� <ELECTRONICALLY SIGNED> ���������������������������������������� By: Adonay Taylor MD ��������������������������������������������� 11/22/18 0908 1047 0015 Adonay Taylor MD /nt
--- NOTE | 2018-11-22 12:00 | NUR ---
MADYSON reviewed chart and spoke with nursing and attending physician. Pt was transferred to [facility] from . Pt to have arteriogram today. Pt was on service with [facility] prior to admission and has plans to resume HH services at time of discharge. enterprise resource planner to fax referral to [facility]. Unsure if pt will be ready for discharge over the weekend. Contact info for [facility] placed in pt's discharge summary. MADYSON is following to assist as needed with discharge planning.
--- NOTE | 2018-11-22 12:11 | NUR ---
DISCHARGE PLANNING. ANTICIPATED DISCHARGE TO HOME WITH HOME HEALTH SERVICES. PATIENT IS CURRENT WITH [facility]. REFERRAL FAXED TO THEM. CALL PLACED TO [facility] INTAKE DEPARTMENT. SPOKE WITH SHANICE TO NOTIFY. CONTACT INFORMATION PROVIDED TO HER. [facility] CONTACT NUMBER IS FAX SHOULD PATIENT DISCHARGE OVER THE WEEKEND AND HOME HEALTH ORDERS COMPLETED, PLEASE FAX DISCHARGE ORDERS AND DISCHARGE SUMMARY TO TO [facility] FOR RESUMPTION OF HOME HEALTH SERVICES. THANK YOU.
--- NOTE | 2018-11-22 15:28 | NUR ---
WOUND FOLLOW UP: PT. WAS SEEN TODAY BY DR. ALLEN AND MYSELF. SWELLING IS DOWN IN PT. FOOT TODAY. PT. WAS SEEN BY SURGERY AND NO SURGERY WILL BE DONE AT THIS TIME. PT. WILL HAVE HIS ANGIO THIS AFTERNOON. RECOMMENDATIONS: CONTINUE WITH CURRENT PLAN OF CARE. PT. AND STAFF NURSE WERE INSTRUCTED ON PLAN OF CARE.
--- NOTE | 2018-11-22 19:24 | NUR ---
ASSUMED CARE OF PATIENT AT 0715, PATIENT ALERT AND ORIENTED X 4. UP AD TYLER, WITH TOE TOUCH WEIGHT BEARING WITH SURGICAL SHOE TO RIGHT FOOT. PATIENT RECEIVE SPONGE BATH IS AM. PATIENT C/O PAIN WITH LOW BACK THIS AM, RECEIVED TYLENOL, WITH COMPLETE RELIEF. PATIENT HAD LIGHT BREAKFAST AND NO LUNCH DUE TO ARTERIOGRAM LEFT UNIT AT ABOUT 1415, VIA BED. PATIENT ARRIVED BACK ABOUT 1730, DENIES PAIN, POST VITALS ORDERED. RESUMED DIET HEART HEALTHY. PATIENT HAD FISH DRESSING LEFT GROIN, C/D/I, WILL MONITOR FOR SIGNS OF BLEEDING THROUGHOUT THE SHIFT AND REPORT OFF TO THE NIGHT NURSE TO MONITOR FOR BLEEDING. PATIENT HAS LEFT HAND IV WITH 1/2 NS AT 75CC/HR, PATIENT CONTINUES TO RECEIVE IV ANTIBIOTICS, AND WILL HAVE VANCO TROUGH AT 0030. PATIENT VOIDED 500CC PER URINAL, NO DIFFICULTY WITH VOIDING. PATIENT ON BEDREST UNITL 2014. ROOM AIR, NO SOB NOTED AFTER RETURNING TO THE UNIT, DAUGHTER AT BEDSIDE. WILL CONTINUE TO MONITOR.
[2018-11-22 20:40] LABS: HEMATOCRIT 39.9 % (42.0-52.0); HEMOGLOBIN 13.1 gm/dL (14.0-18.0); MCHC 32.9 g/dL (28.0-37.0); MCV 91.2 fL (80.0-100.0); RBC 4.38 mil/uL (4.50-6.00); WBC 10.2 thou/uL (4.0-11.0)
--- NOTE | 2018-11-22 21:38 | NUR ---
THIS NURSE ACCEPTED PATIENT AT APPROX. 1905. ROUNDED WITH AM NURSE AND FOUND DRESSING TO LEFT GROIN TO BE DRY AND INTACT. PATIENT WAS INSTRUCTED TO STAY RESTED IN THE BED UNTIL AT LEAST 2029 AND THIS NURSE WOULD BE IN TO RE-EVALUATE HIS DRESSING. AT 2009 THE CONTINUOUS LINTER DRIER OPERATOR WAS DOING HER REGULAR BLOOD PRESSURE CHECKS AND NOTED THAT PATIENT WAS BLEEDING FROM HIS LEFT GROIN SITE. A NURSE IMMEDIATELY PUT PRESSURE ON SITE AND THIS NURSE CALLED DR. RENDON'S ANSWERING SERVICE AT 2011. NO CALL WAS RETURNED AND ANOTHER WAS PLACED AT 2034. DR. LOPEZ SPOKE TO THIS NURSE AND WAS TOLD THAT PRESSURE HAD BEEN APPLIED FOR APPROX 30-45MINUTES AND BLEEDING HAD STOPPED. ONCOLOGY PATIENT NAVIGATOR AND LAWNMOWER MECHANIC WERE CONTACTED AND HAVE SEEN THE PATIENT, A STAT ORDER FOR CBC WAS PLACED AND PATIENT WOULD BE TRANSFERRING TO ROOM 352. STATED THAT HE WANTED THE PATIENT TO GO TO CCU, REMAIN ON BEDREST THROUGHOUT THE NIGHT AND HAVE AN ULTRASOUND IN THE MORNING ON LEFT GROIN. PATIENT WAS TRANSFERRED TO ROOM 352, THIS NURSE GAVE REPORT TO BRANDON AMEZCUA AND DOCTORS ORDERS WERE PUT IN. PATIENT WAS TRANSFERRED AT APPROX. 2044.
[2018-11-23 00:09] VITALS: BP 149/69
--- NOTE | 2018-11-23 03:16 | NUR ---
NURSE ASSUMED CARE OF PATIENT AT APPROXIMATELY 2100. PATIENT ARRIVED VIA CART FROM [facility] AND WAS KEPT IMMOBILE AND ON BED REST. POST OP SITE APPEARED TO HAVE STOPPED BLEEDING PRIOR TO ARRIVAL. VITALS TAKEN Q15x4,Q30x4, AND Q4. VITAL SIGNS STABLE. PATIENT IS ALERT AND ORIENTED AND ABLE TO ASSIST IN CARE. PATIENT TRANSFERRED TO HOSPITAL BED WITHOUT INCIDENT AROUND 0230 WHEN NURSING STAFF FELT HE WAS STABLE.
[2018-11-23 04:15] VITALS: BP 155/80
[2018-11-23 07:18] VITALS: BP 153/89
[2018-11-23 11:05] VITALS: BP 153/75
[2018-11-23 15:41] VITALS: BP 141/69
--- NOTE | 2018-11-23 15:43 | NUR ---
Assumed care of Pt at 0700. Pt alert and oriented, in no acute distress. no active bleeding from angiogram site. ultrasound negative for hematoma or any active bleeding. dr cain notified - no longer restricted to bedrest. sinus on telemetry. calls out appropriately. up w/ 1 assist to bathroom - currently unsteady. physical therapy to work with patient tomorrow. pt progressing toward poc goals.
[2018-11-23 19:21] VITALS: BP 129/69
[2018-11-24 04:00] VITALS: BP 120/66
--- NOTE | 2018-11-24 05:28 | NUR ---
PATIENT IS PROGRESSING IN HIS CARE PLAN. VITAL SIGNS STABLE WITH PATIENT HAVING NO COMPLAINTS OF NAUSEA. PATIENT DID COMPLAIN OF LOW LEVEL OF CHRONIC BACK PAIN WHICH WAS TREATED EFFECTIVELY WITH NON PHARMACOLOGICAL INTERVENTION. GROIN POST ANGIOGRAM SITE REMAINED C/D/I WITH NO ADVERSE SIGNS. PATIENT COMPLAINED OF CONSTIPATION WHICH NURSE TREATED THROUGH PRN MEDS AND PRUNE JUICE TO NO AVAIL. UP TO THE RESTROOM MULTIPLE TIMES WITH ASSISTANCE INCIDENT FREE, PATIENT IS A HIGH FALL RISK. CONTINUE PLAN OF CARE.
[2018-11-24 07:37] VITALS: BP 131/75
[2018-11-24 08:52] VITALS: BP 131/75
[2018-11-24] MEDS ORDERED: LIPITOR 20 MG T20 M1 PO (09:31)
[2018-11-24] MEDS ORDERED: LEVAQUIN 750 M750 MG PO (09:33)
--- NOTE | 2018-11-24 12:21 | NUR ---
PATIENT ALERT AND ORIENTED X4, NO COMPLAINTS OF PAIN. A-FIB ON REPAIR COIL WINDER. ON ROOM AIR, TOLERATING DIET. WOUND DRESSING TO RIGHT FOOT INTACT. PATIENT AND DAUGHTER EDUCATED ON DISCHARGE INSTRUCTIONS: PRESCRIPTION, FOLLOW-UP APPOINTMENT, ACTIVITY. BOTH VERBALIZED UNDERSTANDING. IV REMOVED. NO SIGNS OF ACUTE DISTRESS NOTED AT THIS TIME. PATIENT TRANSFERRED TO VEHICLE.
--- NOTE | 2018-11-25 07:35 | HC ---
[facility] [place] [address] CONSULTATION Name: DAVID RAMÍREZ Room #: 352-P [facility] IN M.R.#: [id number] Admission: 11/20/18 ������������������ Attend Phys: Deidre Collier Discharge: 11/24/18 ������������������ Date of : 32 Report #: [id number] THIS REPORT FOR: //name// CC: Deidre Berman Sirisha SHOOK CLARISSA DATE OF SERVICE: 11/20/2018 CHIEF COMPLAINT: Ulceration and cellulitis to the right foot. HISTORY OF PRESENT ILLNESS: This is an 88-year-old male patient who I have been following in the wound center for quite some time. He was admitted last fall with a neuropathic type ulcer of the bottom of the plantar aspect of his right foot. He underwent a surgical exploration without evidence of any underlying osteomyelitis. It was recommended at that time that he obtain custom orthotic inserts to offload the foot. He, however, has been reluctant to do so despite multiple recommendations to the contrary. He presented to the clinic with worsening pain and drainage from the plantar ulcer on his foot as well as a new ulcer at the base of the fourth MTP joint with odor and drainage and erythema. It was felt that he had possible underlying osteomyelitis and had significant cellulitis of the foot. He is admitted now for further assessment and intravenous antibiotic therapy. PAST MEDICAL HISTORY: Positive for history of falls, previous head injury, sepsis, urinary retention, non-diabetic peripheral neuropathy and atrial fibrillation with rapid ventricular response. ALLERGIES: CODEINE AND CYCLOBENZAPRINE. MEDICATIONS: Synthroid, docusate sodium, Xarelto, acetaminophen, menthol, diltiazem, melatonin, metoprolol. SOCIAL HISTORY: Negative for current alcohol or tobacco use. FAMILY HISTORY: Noncontributory. REVIEW OF SYSTEMS: CONSTITUTIONAL: The patient denies fever, chills or weight loss. NEUROLOGICAL: The patient does have peripheral neuropathy. ENT: The patient denies earache, nasal drainage, sore throat. CARDIOVASCULAR: The patient denies chest pain, palpitations, diaphoresis. PULMONARY: The patient denies cough or shortness of breath. GASTROINTESTINAL: The patient denies nausea, vomiting, diarrhea or abdominal pain. ORTHOPEDIC: The patient does have some pain in the right foot with [facility] [address] [place] [address] CONSULTATION Name: DAVID RAMÍREZ Room #: [facility].#: [id number] Admission: 11/20/18 ������������������ Attend Phys: Deidre Collier Discharge: 11/24/18 ������������������ Date of : 32 Report #: [id number] weightbearing. Other systems are negative in a 14-point review of systems. PHYSICAL EXAMINATION: VITAL SIGNS: At this time include temperature 98.7, pulse 72, respiratory rate 16, blood pressure 122/53. GENERAL: This is a chronically ill-appearing male patient who appears to be in minimal distress. HEENT: Head normocephalic. Nose and throat are clear. NECK: Supple. LUNGS: Clear. ABDOMEN: Soft. Bowel sounds present. HEART: Irregular without a murmur. EXTREMITIES: Right foot demonstrates significant redness, erythema, drainage and odor from the base of the fourth toe on the plantar surface. There is also a larger ulceration at the base of the second MTP joint. CLINICAL IMPRESSION: 1. Ulcerations to the right foot with underlying cellulitis and abscess formation. 2. Non-diabetic peripheral neuropathy. 3. Atrial fibrillation with rapid ventricular response. RECOMMENDATIONS: At this point in time, I have reviewed with the patient and his daughter the importance of obtaining custom orthotics to offload the metatarsals. The patient will be started on broad-spectrum antibiotics and culture and sensitivity have been obtained. He may require some surgical intervention. I have asked Dr. Damian Sauceda to see him again with regard to a surgical opinion. Arterial Dopplers have also demonstrated progression of peripheral arterial disease. We will consult Interventional Radiology for possible percutaneous revascularization. I appreciate being asked to see him in consultation. ��������������������������������������������� <ELECTRONICALLY SIGNED> ���������������������������������������� By: Faraz Long MD ��������������������������������������������� 11/25/18 0735 0801 0026 Faraz Long MD /nt
--- NOTE | 2018-11-25 09:45 | NUR ---
dP HAD A REQUEST FROM [facility] TO FAX ORDERS TO THEM ([facility]). pATIENT HAS DISCHARGED BUT THEY DID NOT RECEIVE HH ORDERS. FAXED ORDERS TO [phone]. PHONE [phone].
== END 2018-11-24 11:46 | disposition home or self-care (01) | DRG 603 ==
LOC: HYPER 06:58 → 4E 10:56 → SICU 11-21 18:12 → 3W 11-22 21:16
PROVIDERS: Internal Medicine; Nurse Practitioner; Nurse Practitioner Family; ADMIT Hospitalist
DX: L03.115 Cellulitis of right lower limb (principal); L02.611 Cutaneous abscess of right foot; I70.201 Unspecified atherosclerosis of native arteries of extremities, right leg; G62.9 Polyneuropathy, unspecified; L97.519 Non-pressure chronic ulcer of other part of right foot with unspecified severity; E78.5 Hyperlipidemia, unspecified; K75.9 Inflammatory liver disease, unspecified; K59.00 Constipation, unspecified; I10 Essential (primary) hypertension; E03.9 Hypothyroidism, unspecified; I48.2 Chronic atrial fibrillation; M54.9 Dorsalgia, unspecified; G47.00 Insomnia, unspecified; G89.29 Other chronic pain; Z91.14 Patient's other noncompliance with medication regimen; Z90.79 Acquired absence of other genital organ(s); Z87.891 Personal history of nicotine dependence; Z87.81 Personal history of (healed) traumatic fracture; Z91.81 History of falling; Z87.828 Personal history of other (healed) physical injury and trauma; Z79.01 Long term (current) use of anticoagulants; Z79.899 Other long term (current) drug therapy; Z88.0 Allergy status to penicillin; Z88.5 Allergy status to narcotic agent; Z88.8 Allergy status to other drugs, medicaments and biological substances
CPT/HCPCS: 10779; 10783; 15002

== ENCOUNTER → 2018-12-11 | Outpatient (CLI) | payer OTHER, MEDICARE ==
[~2018-12-11] MED LIST changes: +BIOFREEZE118 ML TOP; +LEVAQUIN 750 M750 MG PO; +LIPITOR 20 MG T20 M1 PO; +PHARMACY
== END ==
LOC: HYPER 12-04 12:54
DX: T81.89XD Other complications of procedures, not elsewhere classified, subsequent encounter (principal); L97.512 Non-pressure chronic ulcer of other part of right foot with fat layer exposed; I50.20 Unspecified systolic (congestive) heart failure; M25.552 Pain in left hip; I42.9 Cardiomyopathy, unspecified; I48.91 Unspecified atrial fibrillation; E03.9 Hypothyroidism, unspecified; G93.41 Metabolic encephalopathy; R13.19 Other dysphagia; Z85.46 Personal history of malignant neoplasm of prostate; Z79.01 Long term (current) use of anticoagulants; Z91.81 History of falling; Z87.891 Personal history of nicotine dependence

== ENCOUNTER → 2019-01-01 | Outpatient (CLI) | payer OTHER, MEDICARE | LOC: HYPER 09:28 | DX: T81.89XD Other complications of procedures, not elsewhere classified, subsequent encounter (principal); L97.512 Non-pressure chronic ulcer of other part of right foot with fat layer exposed; I10 Essential (primary) hypertension; I50.20 Unspecified systolic (congestive) heart failure; M25.552 Pain in left hip; I45.9 Conduction disorder, unspecified; I48.91 Unspecified atrial fibrillation; G93.41 Metabolic encephalopathy; E03.9 Hypothyroidism, unspecified; R13.19 Other dysphagia; Z85.46 Personal history of malignant neoplasm of prostate; Z79.01 Long term (current) use of anticoagulants; Z87.891 Personal history of nicotine dependence; Z91.81 History of falling; Y83.8 Other surgical procedures as the cause of abnormal reaction of the patient, or of later complication, without mention of misadventure at the time of the procedure ==

== ENCOUNTER → 2019-01-15 | Outpatient (CLI) | payer OTHER, MEDICARE | LOC: HYPER 06:39 | DX: T81.89XD Other complications of procedures, not elsewhere classified, subsequent encounter (principal); L97.512 Non-pressure chronic ulcer of other part of right foot with fat layer exposed; I11.0 Hypertensive heart disease with heart failure; I50.20 Unspecified systolic (congestive) heart failure; M25.552 Pain in left hip; R13.19 Other dysphagia; I42.9 Cardiomyopathy, unspecified; G93.41 Metabolic encephalopathy; I48.91 Unspecified atrial fibrillation; E03.9 Hypothyroidism, unspecified; Z87.891 Personal history of nicotine dependence; Z85.46 Personal history of malignant neoplasm of prostate; Z79.01 Long term (current) use of anticoagulants; Z91.81 History of falling; Y83.8 Other surgical procedures as the cause of abnormal reaction of the patient, or of later complication, without mention of misadventure at the time of the procedure ==

== ENCOUNTER → 2019-02-05 | Outpatient (CLI) | payer OTHER, MEDICARE | LOC: HYPER 06:28 | DX: T81.89XD Other complications of procedures, not elsewhere classified, subsequent encounter (principal); L97.512 Non-pressure chronic ulcer of other part of right foot with fat layer exposed; I10 Essential (primary) hypertension; M25.552 Pain in left hip; I42.9 Cardiomyopathy, unspecified; I48.91 Unspecified atrial fibrillation; A41.9 Sepsis, unspecified organism; G93.41 Metabolic encephalopathy; E03.9 Hypothyroidism, unspecified; R13.19 Other dysphagia; Z85.46 Personal history of malignant neoplasm of prostate; Z79.01 Long term (current) use of anticoagulants; Z91.81 History of falling; Z87.891 Personal history of nicotine dependence; Y83.8 Other surgical procedures as the cause of abnormal reaction of the patient, or of later complication, without mention of misadventure at the time of the procedure ==

== ENCOUNTER → 2019-02-19 | Outpatient (CLI) | payer OTHER, MEDICARE | LOC: HYPER 06:12 | DX: T81.89XD Other complications of procedures, not elsewhere classified, subsequent encounter (principal); L97.512 Non-pressure chronic ulcer of other part of right foot with fat layer exposed; S61.217A Laceration without foreign body of left little finger without damage to nail, initial encounter; L84 Corns and callosities; G93.41 Metabolic encephalopathy; E03.9 Hypothyroidism, unspecified; I11.0 Hypertensive heart disease with heart failure; I50.20 Unspecified systolic (congestive) heart failure; I42.9 Cardiomyopathy, unspecified; I48.91 Unspecified atrial fibrillation; Z79.01 Long term (current) use of anticoagulants; Z85.46 Personal history of malignant neoplasm of prostate; Z87.891 Personal history of nicotine dependence; W19.XXXA Unspecified fall, initial encounter; Y93.89 Activity, other specified; Y92.89 Other specified places as the place of occurrence of the external cause; Y99.8 Other external cause status; Y83.8 Other surgical procedures as the cause of abnormal reaction of the patient, or of later complication, without mention of misadventure at the time of the procedure ==

== ENCOUNTER → 2019-03-05 | Outpatient (CLI) | payer OTHER, MEDICARE | LOC: HYPER 06:38 | DX: T81.89XD Other complications of procedures, not elsewhere classified, subsequent encounter (principal); L97.512 Non-pressure chronic ulcer of other part of right foot with fat layer exposed; E03.9 Hypothyroidism, unspecified; G93.41 Metabolic encephalopathy; I50.20 Unspecified systolic (congestive) heart failure; I42.9 Cardiomyopathy, unspecified; I48.91 Unspecified atrial fibrillation; I10 Essential (primary) hypertension; R13.19 Other dysphagia; K21.9 Gastro-esophageal reflux disease without esophagitis; M25.552 Pain in left hip; Z79.01 Long term (current) use of anticoagulants; Z85.46 Personal history of malignant neoplasm of prostate; Y83.8 Other surgical procedures as the cause of abnormal reaction of the patient, or of later complication, without mention of misadventure at the time of the procedure ==

== ENCOUNTER → 2019-03-19 | Outpatient (CLI) | payer OTHER, MEDICARE | LOC: HYPER 07:00 | DX: T81.89XD Other complications of procedures, not elsewhere classified, subsequent encounter (principal); L97.512 Non-pressure chronic ulcer of other part of right foot with fat layer exposed; S61.208D Unspecified open wound of other finger without damage to nail, subsequent encounter; I11.0 Hypertensive heart disease with heart failure; I50.20 Unspecified systolic (congestive) heart failure; I48.91 Unspecified atrial fibrillation; I42.9 Cardiomyopathy, unspecified; G93.41 Metabolic encephalopathy; E03.9 Hypothyroidism, unspecified; A41.89 Other specified sepsis; M25.552 Pain in left hip; R13.19 Other dysphagia; Z85.46 Personal history of malignant neoplasm of prostate; Z91.81 History of falling; Z79.01 Long term (current) use of anticoagulants; Z87.891 Personal history of nicotine dependence; X58.XXXD Exposure to other specified factors, subsequent encounter; Y83.8 Other surgical procedures as the cause of abnormal reaction of the patient, or of later complication, without mention of misadventure at the time of the procedure ==

== ENCOUNTER → 2019-04-02 | Outpatient (CLI) | payer OTHER, MEDICARE | LOC: HYPER 06:51 | DX: T81.89XD Other complications of procedures, not elsewhere classified, subsequent encounter (principal); L97.512 Non-pressure chronic ulcer of other part of right foot with fat layer exposed; L84 Corns and callosities; E03.9 Hypothyroidism, unspecified; G93.41 Metabolic encephalopathy; I11.0 Hypertensive heart disease with heart failure; I50.20 Unspecified systolic (congestive) heart failure; I42.9 Cardiomyopathy, unspecified; I48.91 Unspecified atrial fibrillation; K21.9 Gastro-esophageal reflux disease without esophagitis; Z87.891 Personal history of nicotine dependence; Z85.46 Personal history of malignant neoplasm of prostate; Z79.01 Long term (current) use of anticoagulants; Y83.8 Other surgical procedures as the cause of abnormal reaction of the patient, or of later complication, without mention of misadventure at the time of the procedure ==